=== PATIENT | male | born 1955 | race Hispanic/Latino ===

== ENCOUNTER 2018-04-22 08:40 | Emergency (ER) | payer MEDICAID, OTHER ==
[2018-04-22 08:45] VITALS: TEMP 97
[2018-04-22 08:46] VITALS: BMI 23.7
[2018-04-22] MEDS ORDERED: Multivitamin (MVI) 10 ML, Thiamine 100 MG, Folic Acid 1 MG in Dextrose 5%/0.45% NS 1,00... IV ONE (09:12)
[2018-04-22] MEDS ORDERED: Sodium Chloride 0.9% 1,000 ML IV STA (09:12)
[2018-04-22 10:05] LABS: BASO % 0.7 % (0.0-2.0); EOS # 0.1 K/uL (0.0-0.7); EOS % 1.3 % (0.0-4.0); HEMOGLOBIN 14.2 g/dL (12.0-18.0); LYMPH # 1.2 K/uL (1.0-4.3); LYMPH % 19.8 % (20.0-40.0); MEAN CELL VOLUME 94.7 fl (80.0-94.0); MEAN CORPUSCULAR HEMOGLOBIN 32.4 pg (27.0-31.0); MEAN CORPUSCULAR HGB CONC 34.3 g/dL (33.0-37.0); MONO # 0.5 K/uL (0.0-0.8); MONO % 8.7 % (0.0-10.0); NEUT # 4.1 K/uL (1.8-7.0); NEUT % 69.5 % (50.0-75.0); NRBC % 0.1 % (0.0-0.0); RBC 4.39 Mil/uL (4.40-5.90); RED CELL DISTRIBUTION WIDTH 14.3 % (11.5-14.5); WHITE BLOOD COUNT 5.9 K/uL (4.8-10.8)
[2018-04-22 10:17] LABS: ALB/GLOB RATIO 1.4 (1.0-2.1); ALBUMIN 4.4 g/dL (3.5-5.0); ALT/SGPT 18 U/L (21-72); AST/SGOT 21 U/L (17-59); BLOOD UREA NITROGEN 7 mg/dl (9-20); CALCIUM 8.7 mg/dL (8.4-10.2); GFR NON-AFRICAN AMERICAN > 60
--- NOTE | 2018-04-22 10:25 | ED PDOC ---
Syncope/Near Syncope/Dizziness Time Seen by Provider: 04/22/18 09:00 Chief Complaint (Nursing): Dizziness/Lightheaded Chief Complaint (Provider): Dizziness/Lightheaded History Per: Patient History/Exam Limitations: no limitations Onset/Duration Of Symptoms: Days (x10) Current Symptoms Are (Timing): Still Present Activity At Onset Of Symptoms: Walking Associated Symptoms Preceding Syncopal Episode: Worse With Standing, Vertigo Possible Causative Factor(s): Recent Alcohol, Decreased PO Intake Additional Complaint(s): 62 year old homeless male with a past medical history of diabetes was brought in by EMS presents to the ED complaining of on and off dizziness that worsens when he gets up to walk, onset ten days ago. Patient states he has not been drinking enough water and is instead ingesting alcohol instead. Patient reports of feeling thirsty, headaches, myalgias, and shaking due to hot summer weather, being on the streets all day, not drinking enough water and being under the sun. Patient admits that his last drink was yesterday. Additionally, patient has been having chronic cough and mild on and off chest pain. Patient reports he is not depressed and has not had suicidal ideation or homicidal ideation. Patient reports he had went to a specific program and stopped drinking for a period of time but started to binge drink ten days ago. In addition, patient reports of falling 20 days ago when he hit his head. Patient was seen at a different hospital. Triage reported a history of DVT and patient states he has never taken any medications. Patient states he has not been taking diabetes medications for ten days. Denies abdominal pain, vomiting, and diarrhea. PMD: None Provided Past Medical History Reviewed: Historical Data, Nursing Documentation, Vital Signs Vital Signs: Last Vital Signs Temp 97 F L 04/22/18 08:45 Pulse 102 H 04/22/18 08:45 Resp BP 121/63 04/22/18 08:45 Pulse Ox 98 04/22/18 08:50 - Medical History PMH: Cardia Arrhythmia, Diabetes, HTN - Surgical History Surgical History: No Surg Hx - Family History Family History: States: Unknown Family Hx - Home Medications Home Medications: Ambulatory Orders Medication Instructions Recorded Nicotine 14 mg/24 hr [Nicoderm CQ] 1 patch TD DAILY 04/22/18 Pregabalin [Lyrica] 50 mg PO Q12 04/22/18 Sertraline [Zoloft] 25 mg PO DAILY 04/22/18 metFORMIN [glucOPHAGE] 500 mg PO BID 04/22/18 traZODone [Desyrel] 50 mg PO HS 04/22/18 - Allergies Allergies/Adverse Reactions: Allergies Allergy/AdvReac Type Severity Reaction Status Date / Time gabapentin Allergy Mild RASH Verified 04/22/18 08:49 Review of Systems ROS Statement: Except As Marked, All Systems Reviewed And Found Negative Constitutional: Positive for: Chills, Other (myalgia ) Cardiovascular: Positive for: Chest Pain (mild on and off) Respiratory: Positive for: Cough (chronic) Gastrointestinal: Positive for: Other (decreased water intake ). Negative for: Vomiting, Abdominal Pain, Diarrhea Neurological: Positive for: Headache, Dizziness Psych: Positive for: Other (alcohol intoxication ). Negative for: Depression, Suicidal ideation (or homicidal ideation) Physical Exam - Reviewed Nursing Documentation Reviewed: Yes Vital Signs Reviewed: Yes - Physical Exam Appears: Positive for: No Acute Distress (comfortable but disheveled) Head Exam: Positive for: ATRAUMATIC Skin: Positive for: Normal Color Eye Exam: Positive for: EOMI, PERRL. Negative for: Nystagmus ENT: Positive for: Normal ENT Inspection (dry mucous membranes) Neck: Positive for: Normal, Painless ROM, Supple Cardiovascular/Chest: Positive for: Regular Rate, Rhythm, Tachycardia. Negative for: Murmur Respiratory: Positive for: Normal Breath Sounds. Negative for: Respiratory Distress Gastrointestinal/Abdominal: Positive for: Normal Exam, Soft. Negative for: Tenderness Back: Positive for: Normal Inspection Extremity: Positive for: Normal ROM Neurologic/Psych: Positive for: Alert, Oriented (x3). Negative for: Motor/ Sensory Deficits - Laboratory Results Result Diagrams: 04/22/18 09:57 04/22/18 09:57 - ECG O2 Sat by Pulse Oximetry: 98 (RA) Pulse Ox Interpretation: Normal Medical Decision Making Medical Decision Making: Time: 910 Impression: Dizziness, flu-like symptoms, alcohol abuse Differentials include but not limited to bengin positional vertigo, orthostatic HTN due to dehydration, EtOH intoxication with early withdrawal, dehydration with acute renal failure, electrolyte abnormality associated with alcoholism. Rule Out: Intracranial bleeding (less likely), possible peripheral vertigo. Plan: -- Head CT w/o Contrast -- EKG -- ED Urine Dipstick -- Urine Drug Screen -- CXR Portable -- Antivert 25 mg PO -- [Dextrose 5%/0.45% NS Multivitamin (MVI) 10 ml Thiamine 100 mg Folic Acid 1 mg] IV 125 mls/hr -- Librium 50 mg PO -- Sodum Chloride IV 1000 mls/hr -- Orthostatic BP PRN Time: 0957 Plan: -- Alcohol Serum -- CMP -- Magnesium -- Troponin I -- CBC with differentials Time: [address] RESULTS FINDINGS: HEMORRHAGE: No intracranial hemorrhage. BRAIN: No mass effect or edema. Atrophy. Chronic microvascular ischemic changes. Right basal ganglia lacunar infarction. VENTRICLES: Prominent. No hydrocephalus. CALVARIUM: Unremarkable. PARANASAL SINUSES: Unremarkable as visualized. No significant inflammatory changes. MASTOID AIR CELLS: Unremarkable as visualized. No inflammatory changes. OTHER FINDINGS: None. IMPRESSION: No acute intracranial pathology. Time:1204 CXR RESULTS FINDINGS: LUNGS: No active pulmonary disease. PLEURA: No significant pleural effusion identified, no pneumothorax apparent. CARDIOVASCULAR: Atherosclerotic aortic calcifications. Cardiomediastinal silhouette within normal limits. OSSEOUS STRUCTURES: Degenerative changes. VISUALIZED UPPER ABDOMEN: Normal. OTHER FINDINGS: None. IMPRESSION: No active disease. 1345 Patient is improved. No dizziness. Not orthostatic on repeat test. Ambulated with steady gait without assistance. No signs of alcohol withdrawal after benzos. 1350 Denies depression, SI or HI. Given referral by crisis. No detox beds available. Scribe Attestation: Documented by Natasha Mcgill, acting as a scribe for Dr. Hugo Jason MD. Provider Scribe Attestation: All medical record entries made by the Scribe were at my direction and personally dictated by me. I have reviewed the chart and agree that the record accurately reflects my personal performance of the history, physical exam, medical decision making, and the department course for this patient. I have also personally directed, reviewed, and agree with the discharge instructions and disposition. Disposition - Clinical Impression Clinical Impression: Dizziness, Alcohol abuse - Patient ED Disposition Is Patient to be Admitted: No Doctor Will See Patient In The: Office Counseled Patient/Family Regarding: Studies Performed, Diagnosis - Disposition Referrals: [facility] [Outside] Disposition: Routine/Home Disposition Time: 13:54 Condition: GOOD Additional Instructions: Follow up with your PCP in 2-3 days. Instructions: Alcohol Abuse and Alcoholism (DC), Dizziness, Nonvertigo, (DC)
--- NOTE | 2018-04-22 10:52 | CT ---
PROCEDURE: CT HEAD WITHOUT CONTRAST. HISTORY: dizziness COMPARISON: None available. TECHNIQUE: Axial computed tomography images were obtained through the head/brain without intravenous contrast. Radiation dose: Total exam DLP = 1340 mGy-cm. This CT exam was performed using one or more of the following dose reduction techniques: Automated exposure control, adjustment of the mA and/or kV according to patient size, and/or use of iterative reconstruction technique. FINDINGS: HEMORRHAGE: No intracranial hemorrhage. BRAIN: No mass effect or edema. Atrophy. Chronic microvascular ischemic changes. Right basal ganglia lacunar infarction. VENTRICLES: Prominent. No hydrocephalus. CALVARIUM: Unremarkable. PARANASAL SINUSES: Unremarkable as visualized. No significant inflammatory changes. MASTOID AIR CELLS: Unremarkable as visualized. No inflammatory changes. OTHER FINDINGS: None. IMPRESSION: No acute intracranial pathology.
[2018-04-22] MEDS ORDERED: Potassium Chloride 20 mEq ER Tab PO ONE ×2 (10:53→12:34)
--- NOTE | 2018-04-22 12:05 | RAD ---
HISTORY: chest pain COMPARISON: No prior. FINDINGS: LUNGS: No active pulmonary disease. PLEURA: No significant pleural effusion identified, no pneumothorax apparent. CARDIOVASCULAR: Atherosclerotic aortic calcifications. Cardiomediastinal silhouette within normal limits. OSSEOUS STRUCTURES: Degenerative changes. VISUALIZED UPPER ABDOMEN: Normal. OTHER FINDINGS: None. IMPRESSION: No active disease.
--- NOTE | 2018-04-22 12:38 | CARD ---
APPROVED REPORT EKG Measurement Heart [id number] <Conclusion> Normal sinus rhythm Normal ECG
[2018-04-22 12:44] VITALS: O2SAT 98
[2018-04-22 15:29] VITALS: BP 128/78; PULSE 78; RESP 19
== END 2018-04-22 15:30 | disposition home or self-care (01) ==
LOC: EDBD → H.ER 08:40 → UNMERGE 08:40 → MERGE 08:40 → H.ER 15:30
DX: R42 Dizziness and giddiness (principal); F10.10 Alcohol abuse, uncomplicated; E11.9 Type 2 diabetes mellitus without complications; I10 Essential (primary) hypertension; N17.9 Acute kidney failure, unspecified; Z79.84 Long term (current) use of oral hypoglycemic drugs
CPT/HCPCS: 70450; 71045; 80053; 82948; 83735; 84484; 85025; 93005; 99285; G0480; J2060; J3411; J7030; J7042

== ENCOUNTER 2018-06-09 15:10 | Emergency (ER) | payer MEDICARE, OTHER ==
[2018-06-09 15:28] VITALS: BP 127/79; PULSE 87; RESP 16; O2SAT 97
[2018-06-09 16:35] LABS: BASO # 0.2 K/uL (0.0-0.2); BASO % 1.5 % (0.0-2.0); EOS # 0.8 K/uL (0.0-0.7); EOS % 5.7 % (0.0-4.0); HEMOGLOBIN 13.8 g/dL (12.0-18.0); LYMPH # 3.5 K/uL (1.0-4.3); MEAN CORPUSCULAR HEMOGLOBIN 31.8 pg (27.0-31.0); MEAN CORPUSCULAR HGB CONC 34.6 g/dL (33.0-37.0); MEAN PLATELET VOLUME 7.9 fl (7.2-11.7); MONO # 1.3 K/uL (0.0-0.8); MONO % 9.1 % (0.0-10.0); NEUT # 8.2 K/uL (1.8-7.0); NEUT % 58.7 % (50.0-75.0); RBC 4.33 Mil/uL (4.40-5.90); RED CELL DISTRIBUTION WIDTH 13.9 % (11.5-14.5); WHITE BLOOD COUNT 13.9 K/uL (4.8-10.8)
--- NOTE | 2018-06-09 16:36 | ED PDOC ---
HPI: General Adult Time Seen by Provider: 06/09/18 15:15 Chief Complaint (Nursing): Abnormal Labs Chief Complaint (Provider): abnormal labs History Per: Patient History/Exam Limitations: no limitations Additional Complaint(s): Bradly Caro is a 62 year old male, with a past medical history of diabetes and neuropathy, who was sent by Dr. Betancourt for repeat blood work and x-ray post his recent bronchitis. Patient was supposed to go to outpatient lab/ radiology but instead came here. Patient states she was diagnosed with bronchitis a few weeks ago but currently feels better. Patient's wbc was [address] Betancourt but improved. Patient has no medical complaints at this time. PMD: Tico Betancourt Past Medical History Reviewed: Historical Data, Nursing Documentation, Vital Signs Vital Signs: Last Vital Signs Temp 97.9 F 06/09/18 17:00 Pulse 87 06/09/18 15:26 Resp 16 06/09/18 15:26 BP 127/79 06/09/18 15:26 Pulse Ox 97 06/09/18 18:10 - Medical History PMH: Diabetes, Pancreatitis Other PMH: neuropathy - Surgical History Other surgeries: endarterectomy to left leg - Family History Family History: States: Unknown Family Hx - Social History Current smoker - smoking cessation education provided: Yes (5 cigarettes daily but cut down from previous) Alcohol: Other (alcoholic but goes to AA) Drugs: Denies - Home Medications Home Medications: Ambulatory Orders Medication Instructions Recorded Nicotine 14 mg/24 hr [Nicoderm CQ] 1 patch TD DAILY 04/22/18 Pregabalin [Lyrica] 50 mg PO Q12 04/22/18 Sertraline [Zoloft] 25 mg PO DAILY 04/22/18 metFORMIN [glucOPHAGE] 500 mg PO BID 04/22/18 traZODone [Desyrel] 50 mg PO HS 04/22/18 Azithromycin [Zithromax] 250 mg PO DAILY #6 tab 05/30/18 Pregabalin [Lyrica] 50 mg PO BID #30 cap 05/30/18 metFORMIN [glucOPHAGE] 500 mg PO BID #30 tab 05/30/18 - Allergies Allergies/Adverse Reactions: Allergies Allergy/AdvReac Type Severity Reaction Status Date / Time gabapentin Allergy RASH Verified 06/09/18 15:28 Review of Systems ROS Statement: Except As Marked, All Systems Reviewed And Found Negative Physical Exam - Reviewed Nursing Documentation Reviewed: Yes Vital Signs Reviewed: Yes - Physical Exam Appears: Positive for: No Acute Distress Head Exam: Positive for: ATRAUMATIC, NORMAL INSPECTION, NORMOCEPHALIC Skin: Positive for: Normal Color, Warm, Dry Eye Exam: Positive for: Normal appearance, EOMI, PERRL ENT: Positive for: Normal ENT Inspection Neck: Positive for: Painless ROM Cardiovascular/Chest: Positive for: Regular Rate, Rhythm. Negative for: Murmur Respiratory: Positive for: Normal Breath Sounds. Negative for: Respiratory Distress Gastrointestinal/Abdominal: Positive for: Normal Exam, Soft. Negative for: Tenderness Back: Positive for: Normal Inspection Extremity: Positive for: Normal ROM (upper and lower extremities). Negative for : Deformity, Swelling Neurologic/Psych: Positive for: Alert, Oriented. Negative for: Motor/Sensory Deficits - Laboratory Results Result Diagrams: 06/09/18 16:11 06/09/18 16:11 - ECG O2 Sat by Pulse Oximetry: 97 (RA) Pulse Ox Interpretation: Normal Medical Decision Making Medical Decision Making: Time: 15:31 Initial Impression: abnormal labs Initial Plan: --CMP --CBC w/ differential --Chest two views (PA/LAT) [RAD] --Reevaluation -Spoke with Dr. Betancourt who wants to make sure he has no leukocytosis or PNA. Assuming wbc is going down and x-ray is negative. Patient can follow up with him tomorrow. 1700 --WBC decreased. Dr. Betancourt made aware. Patient is advised to follow up with PMD tomorrow. There is agreement to discharge plan. Return if symptoms persist or worsen. cxr see full report. no new pneumonia. ----- Scribe Attestation: Documented by Marcos Chen, acting as a scribe for Tangela Rodriguez MD. Provider Scribe Attestation: All medical record entries made by the Scribe were at my direction and personally dictated by me. I have reviewed the chart and agree that the record accurately reflects my personal performance of the history, physical exam, medical decision making, and the department course for this patient. I have also personally directed, reviewed, and agree with the discharge instructions and disposition. Disposition - Clinical Impression Clinical Impression: Follow up - Patient ED Disposition Is Patient to be Admitted: No Counseled Patient/Family Regarding: Studies Performed, Diagnosis, Need For Followup - Disposition Disposition: Routine/Home Disposition Time: 17:00 Condition: IMPROVED Additional Instructions: follow up with Dr Betancourt tomorrow for reevaluation return to the ED with any worsening or concerning symptoms Forms: [employer] (Uzbek)
[2018-06-09 16:46] LABS: ALB/GLOB RATIO 1.3 (1.0-2.1); ALBUMIN 4.4 g/dL (3.5-5.0); ALT/SGPT 16 U/L (21-72); AST/SGOT 15 U/L (17-59); BLOOD UREA NITROGEN 18 mg/dl (9-20); CALCIUM 9.4 mg/dL (8.4-10.2); GFR AFRICAN-AMERICAN > 60; GFR NON-AFRICAN AMERICAN 56
--- NOTE | 2018-06-09 16:52 | RAD ---
Date of service: 06/09/2018 HISTORY: post bronchitis COMPARISON: 05/30/2018 TECHNIQUE: Chest PA and lateral FINDINGS: LUNGS: There is vague asymmetrical opacity over the left lung base this could represent summation anterior posterior ribs and bronchovascular markings. It is slightly more asymmetric. Given history of prior bronchitis -some residual inflammatory changes here 1 consideration. A more sensitive evaluation would be with noncontrast CT chest imaging. Tiny granulomas are also noted. Some of these nodular opacities also project over left upper lung zone. As mentioned noncontrast CT chest is preferred for further evaluation. PLEURA: No significant pleural effusion identified. No pneumothorax apparent. CARDIOVASCULAR: Normal. OSSEOUS STRUCTURES: No significant abnormalities. VISUALIZED UPPER ABDOMEN: Normal. OTHER FINDINGS: None. IMPRESSION: No interval dense consolidation. Nonspecific faint opacities at the left lung base are probably summation of soft tissues and possibly residual inflammatory changes. A more sensitive evaluation for excluding any other with tears pathology would be with noncontrast CT chest imaging. Granulomatous the changes suggested.
[2018-06-09 17:22] VITALS: TEMP 97.9
== END 2018-06-09 17:00 | disposition home or self-care (01) ==
LOC: H.ER 15:10
DX: J40 Bronchitis, not specified as acute or chronic (principal); R79.9 Abnormal finding of blood chemistry, unspecified; E11.40 Type 2 diabetes mellitus with diabetic neuropathy, unspecified; Z79.84 Long term (current) use of oral hypoglycemic drugs

== ENCOUNTER 2018-07-04 20:05 | Emergency (ER) | payer OTHER, MEDICARE ==
--- NOTE | 2018-07-04 21:08 | ED PDOC ---
HPI: Psych/Substance Abuse Time Seen by Provider: 07/04/18 20:15 Chief Complaint (Nursing): Alcohol Ingestion Chief Complaint (Provider): Alcohol Ingestion ED Caveat: Intoxicated History Per: Patient, EMS History/Exam Limitations: intoxication Onset/Duration Of Symptoms: Mins (prior to arrival) Current Symptoms Are (Timing): Still Present Additional Complaint(s): 62 year old male presents to the ED via EMS for alcohol intoxication. Patient was found lying on the ground, and admits to drinking alcohol. He offers no other complaints at this time. Of note, due to patient's intoxication, he is a poor historian, thus limiting HPI, ROS, and PMHX. Some PMHX was pulled from previous charting. PMD: none provided Past Medical History Reviewed: Historical Data, Nursing Documentation, Vital Signs Vital Signs: Last Vital Signs Temp 98.6 F 07/04/18 20:06 Pulse 99 H 07/04/18 20:06 Resp 16 07/04/18 20:06 BP 124/70 07/04/18 20:06 Pulse Ox 90 L 07/04/18 20:06 - Medical History PMH: Diabetes, Pancreatitis - Family History Family History: States: Unknown Family Hx - Social History Alcohol: Social - Immunization History Hx Tetanus Toxoid Vaccination: Yes Hx Influenza Vaccination: No Hx Pneumococcal Vaccination: No - Home Medications Home Medications: Ambulatory Orders Medication Instructions Recorded Nicotine 14 mg/24 hr [Nicoderm CQ] 1 patch TD DAILY 04/22/18 Pregabalin [Lyrica] 50 mg PO Q12 04/22/18 Sertraline [Zoloft] 25 mg PO DAILY 04/22/18 metFORMIN [glucOPHAGE] 500 mg PO BID 04/22/18 traZODone [Desyrel] 50 mg PO HS 04/22/18 Azithromycin [Zithromax] 250 mg PO DAILY #6 tab 05/30/18 Pregabalin [Lyrica] 50 mg PO BID #30 cap 05/30/18 metFORMIN [glucOPHAGE] 500 mg PO BID #30 tab 05/30/18 - Allergies Allergies/Adverse Reactions: Allergies Allergy/AdvReac Type Severity Reaction Status Date / Time gabapentin Allergy RASH Verified 07/04/18 20:08 Review of Systems Review Of Systems: ROS cannot be obtained secondary to pt's inabilty to answer questions. Physical Exam - Reviewed Nursing Documentation Reviewed: Yes Vital Signs Reviewed: Yes - Physical Exam Appears: Positive for: No Acute Distress (but looks disheveled) Head Exam: Positive for: ATRAUMATIC, NORMAL INSPECTION, NORMOCEPHALIC Skin: Positive for: Normal Color, Warm, Dry Eye Exam: Positive for: Normal appearance ENT: Positive for: Normal ENT Inspection Neck: Positive for: Normal, Painless ROM, Supple Cardiovascular/Chest: Positive for: Regular Rate, Rhythm Respiratory: Positive for: Normal Breath Sounds. Negative for: Accessory Muscle Use, Respiratory Distress Gastrointestinal/Abdominal: Positive for: Normal Exam, Soft, Other (large, old abdominal scar, no tenderness or ecchymosis). Negative for: Tenderness Back: Positive for: Normal Inspection (no ecchymosis). Negative for: L CVA Tenderness, R CVA Tenderness, Vertebral Tenderness Extremity: Positive for: Normal ROM Neurologic/Psych: Positive for: Alert, Oriented (x1, to person), Other (slurred speech, alcohol on breath) - Laboratory Results Result Diagrams: 07/04/18 21:59 07/04/18 21:59 - ECG O2 Sat by Pulse Oximetry: 96 (RA) Pulse Ox Interpretation: Normal Medical Decision Making Medical Decision Making: Time: 2100 Initial Impression: alcohol intoxication Initial Plan: --Alcohol serum --CMP --Drug screen --CBC with differential --Accucheck --Urinalysis 2350 On re-evaluation, pt. sleeping comfortably. Arousable to verbal stimuli. Offers no complaints. Scribe Attestation: Documented by Abbey Barton, acting as a scribe for Rudolph Burch PA-C. Provider Scribe Attestation: All medical record entries made by the Scribe were at my direction and personally dictated by me. I have reviewed the chart and agree that the record accurately reflects my personal performance of the history, physical exam, medical decision making, and the department course for this patient. I have also personally directed, reviewed, and agree with the discharge instructions and disposition. Disposition - Clinical Impression Clinical Impression: Alcohol abuse with intoxication - Patient ED Disposition Is Patient to be Admitted: Transfer of Care (Signed out to Suzi RIBEIRO pending sobriety) - Disposition Disposition Time: 00:00 Condition: STABLE Forms: [employer] (Afghan)
[2018-07-04 22:05] LABS: BASO # 0.1 K/uL (0.0-0.2); BASO % 0.6 % (0.0-2.0); EOS % 0.2 % (0.0-4.0); LYMPH # 3.2 K/uL (1.0-4.3); LYMPH % 18.7 % (20.0-40.0); MEAN CELL VOLUME 91.3 fl (80.0-94.0); MEAN CORPUSCULAR HGB CONC 33.9 g/dL (33.0-37.0); MONO # 1.3 K/uL (0.0-0.8); MONO % 7.7 % (0.0-10.0); NEUT # 12.6 K/uL (1.8-7.0); NEUT % 72.8 % (50.0-75.0); RBC 4.52 Mil/uL (4.40-5.90); RED CELL DISTRIBUTION WIDTH 13.7 % (11.5-14.5); WHITE BLOOD COUNT 17.3 K/uL (4.8-10.8)
[2018-07-04 22:36] LABS: ALB/GLOB RATIO 1.4 (1.0-2.1); ALBUMIN 4.4 g/dL (3.5-5.0); ALT/SGPT 18 U/L (21-72); AST/SGOT 22 U/L (17-59); BLOOD UREA NITROGEN 6 mg/dl (9-20); CALCIUM 9.2 mg/dL (8.4-10.2); GFR NON-AFRICAN AMERICAN > 60
[2018-07-05 05:22] LABS: SQUAMOUS EPITHIAL < 1 /hpf (0-5); URINE BACTERIA RARE (<OCC); URINE BILIRUBIN NEGATIVE (NEGATIVE); URINE BLOOD SMALL (NEGATIVE); URINE CLARITY SLIGHTY-CLOUDY (Clear); URINE COLOR YELLOW (YELLOW); URINE GLUCOSE (UA) NEG (Normal); URINE LEUKOCYTE ESTERASE NEG Leu/uL (Negative); URINE PROTEIN 30 mg/dL (NEGATIVE); URINE UROBILINOGEN 0.2-1.0 mg/dL (0.2-1.0)
--- NOTE | 2018-07-05 05:33 | ED PDOC ---
- Laboratory Results Result Diagrams: 07/04/18 21:59 07/04/18 21:59 - ECG O2 Sat by Pulse Oximetry: 96 (RA) - Progress ED Course And Treament: Case endorsed to real estate underwriter from Marcin RIBEIRO pending sobriety 1:30 Patient sleeping; no distress 3:00 Patient sleeping; no distress 4:30 Patient sleeping; no distress 6:00 Patient awake, alert, oriented x3. Ambulating steady gait Vitals stable Patient stable for discharge Disposition - Clinical Impression Clinical Impression: Alcohol abuse with intoxication - POA Present On Arrival: None - Disposition Referrals: [facility] [Outside] Disposition: Routine/Home Disposition Time: 06:00 Condition: STABLE Instructions: Alcohol Abuse and Alcoholism (DC)
[2018-07-05 05:43] LABS: BARBITURATES, UR NEGATIVE (NEGATIVE); BENZODIAZEPINES, UR NEGATIVE (NEGATIVE); OPIATES, UR NEGATIVE (NEGATIVE); PHENCYCLIDINE, UR NEGATIVE (NEGATIVE)
[2018-07-05 06:30] VITALS: BP 124/72; PULSE 91; RESP 18; TEMP 98
[2018-07-06 05:42] VITALS: O2SAT 96
== END 2018-07-05 05:55 | disposition home or self-care (01) ==
LOC: H.ER 20:05
DX: F10.129 Alcohol abuse with intoxication, unspecified (principal); E11.9 Type 2 diabetes mellitus without complications; K85.90 Acute pancreatitis without necrosis or infection, unspecified; Z79.84 Long term (current) use of oral hypoglycemic drugs

== ENCOUNTER 2018-07-11 22:21 | Emergency (ER) | payer MEDICARE, OTHER ==
--- NOTE | 2018-07-11 23:56 | ED PDOC ---
HPI: Psych/Substance Abuse Time Seen by Provider: 07/11/18 22:36 Chief Complaint (Nursing): Alcohol Ingestion Chief Complaint (Provider): Alcohol Ingestion ED Caveat: Intoxicated History Per: Patient, EMS History/Exam Limitations: intoxication Onset/Duration Of Symptoms: Mins Current Symptoms Are (Timing): Still Present Modifying Factor(s): Alcohol Additional Complaint(s): 62 year old male presents to the ED for alcohol intoxication. Patient was found sleeping on the ground with poor hygiene. No trauma reports. History is limited due to intoxication. PMD: none Past Medical History Reviewed: Historical Data, Nursing Documentation, Vital Signs Vital Signs: Last Vital Signs Temp 97.1 F L 07/11/18 22:25 Pulse 89 07/11/18 22:25 Resp 16 07/11/18 22:25 BP 126/69 07/11/18 22:25 Pulse Ox 98 07/11/18 22:25 - Medical History PMH: Diabetes, Pancreatitis - Surgical History Surgical History: No Surg Hx - Family History Family History: States: Unknown Family Hx - Immunization History Hx Tetanus Toxoid Vaccination: Yes Hx Influenza Vaccination: No Hx Pneumococcal Vaccination: No - Home Medications Home Medications: Ambulatory Orders Medication Instructions Recorded Nicotine 14 mg/24 hr [Nicoderm CQ] 1 patch TD DAILY 04/22/18 Pregabalin [Lyrica] 50 mg PO Q12 04/22/18 Sertraline [Zoloft] 25 mg PO DAILY 04/22/18 metFORMIN [glucOPHAGE] 500 mg PO BID 04/22/18 traZODone [Desyrel] 50 mg PO HS 04/22/18 Pregabalin [Lyrica] 50 mg PO BID #30 cap 05/30/18 metFORMIN [glucOPHAGE] 500 mg PO BID #30 tab 05/30/18 Azithromycin [Zithromax] 250 mg PO DAILY #6 tab 07/12/18 Azithromycin [Zithromax] 250 mg PO DAILY #6 tab 07/12/18 Tobramycin 0.3% [Tobramycin 5 Ml] 1 drop OP TID #1 bottle 07/12/18 - Allergies Allergies/Adverse Reactions: Allergies Allergy/AdvReac Type Severity Reaction Status Date / Time gabapentin Allergy RASH Verified 07/12/18 17:18 Review of Systems Review Of Systems: ROS cannot be obtained secondary to pt's inabilty to answer questions. (intoxicated) Constitutional: Negative for: Other (Pain) Physical Exam - Reviewed Nursing Documentation Reviewed: Yes Vital Signs Reviewed: Yes - Physical Exam Appears: Positive for: No Acute Distress (arousable to physical stimuli; intoxicated with poor hygiene with wet pillows; chronic appearing) Head Exam: Positive for: ATRAUMATIC, NORMOCEPHALIC Skin: Negative for: Normal Color (erythroderma to upper greater and lower extremities) Eye Exam: Positive for: Normal appearance Neck: Positive for: Normal, Painless ROM Cardiovascular/Chest: Positive for: Regular Rate, Rhythm. Negative for: Murmur Respiratory: Positive for: Normal Breath Sounds. Negative for: Wheezing, Respiratory Distress Extremity: Positive for: Normal ROM (moves all extremities) Neurologic/Psych: Positive for: Mood/Affect (blunted by alcohol) - ECG O2 Sat by Pulse Oximetry: 98 (RA) Pulse Ox Interpretation: Normal Medical Decision Making Medical Decision Making: Initial Impression: Intoxication Initial Plan: Alcohol serum Glucose Recommend DECON, warm shower, and glucose and alcohol check. 00:30 after decon in shower patient became more arousable, +productive cough, obtain CXR and labs from last night reviewed revealing WBC 17. endorse Dr Jason Scribe Attestation: Documented by Mikhail Earl acting as a scribe for Pastor Spear III, DO. Provider Scribe Attestation: All medical record entries made by the Scribe were at my direction and personally dictated by me. I have reviewed the chart and agree that the record accurately reflects my personal performance of the history, physical exam, medical decision making, and the department course for this patient. I have also personally directed, reviewed, and agree with the discharge instructions and disposition. Disposition - Clinical Impression Clinical Impression: Alcohol abuse with intoxication, Bronchitis - Patient ED Disposition Is Patient to be Admitted: Transfer of Care Counseled Patient/Family Regarding: Studies Performed, Diagnosis - Disposition Referrals: [facility] [Outside] Disposition: Transfer of Care Disposition Time: 00:37 Condition: GOOD Additional Instructions: HA CASTRO, thank you for letting us take care of you today. Your provider was Hugo Jason MD and you were treated for ETOH. The emergency medical care you received today was directed at your acute symptoms. If you were prescribed any medication, please fill it and take as directed. It may take several days for your symptoms to resolve. Return to the Emergency Department if your symptoms worsen, do not improve, or if you have any other problems. Please contact your doctor or call one of the physicians/clinics you have been referred to that are listed on the Patient Visit Information form that is included in your discharge packet. Bring any paperwork you were given at discharge with you along with any medications you are taking to your follow up visit. Our treatment cannot replace ongoing medical care by a primary care provider outside of the emergency department. [facility] of your care today. If you had an X-Ray or CT scan: A Radiologist will review the ED reading if any change in treatment is needed we will contact you. If you had a blood, urine, or wound culture: It will take several days for the results, if any change in treatment is needed we will contact you. If you had an STI test: It will take 48 hours for the results. Please call after 1 week if you have not heard back. Prescriptions: Azithromycin [Zithromax] 250 mg PO DAILY #6 tab Instructions: Acute Bronchitis, Alcohol Abuse and Alcoholism (DC)
--- NOTE | 2018-07-12 00:47 | ED PDOC ---
- ECG O2 Sat by Pulse Oximetry: 98 (RA) Medical Decision Making Medical Decision Makin:00 Patient endorsed to this provider from Dr. Spear. Pending clinical sobriety. Scribe Attestation: Documented by Mikhail Earl acting as a scribe for Hugo Jason MD. Provider Scribe Attestation: All medical record entries made by the Scribe were at my direction and personally dictated by me. I have reviewed the chart and agree that the record accurately reflects my personal performance of the history, physical exam, medical decision making, and the department course for this patient. I have also personally directed, reviewed, and agree with the discharge instructions and disposition. Disposition Doctor Will See Patient In The: Office Counseled Patient/Family Regarding: Studies Performed, Need For Followup - Clinical Impression Clinical Impression: Alcohol abuse with intoxication, Bronchitis - POA Present On Arrival: None - Disposition Referrals: [facility] [Outside] Disposition: Routine/Home Disposition Time: 06:00 Condition: GOOD Additional Instructions: HA CASTRO, thank you for letting us take care of you today. Your provider was Hugo Jason MD and you were treated for ETOH. The emergency medical care you received today was directed at your acute symptoms. If you were prescribed any medication, please fill it and take as directed. It may take several days for your symptoms to resolve. Return to the Emergency Department if your symptoms worsen, do not improve, or if you have any other problems. Please contact your doctor or call one of the physicians/clinics you have been referred to that are listed on the Patient Visit Information form that is included in your discharge packet. Bring any paperwork you were given at discharge with you along with any medications you are taking to your follow up visit. Our treatment cannot replace ongoing medical care by a primary care provider outside of the emergency department. Thank you for allowing the [facility] team to be part of your care today. If you had an X-Ray or CT scan: A Radiologist will review the ED reading if any change in treatment is needed we will contact you. If you had a blood, urine, or wound culture: It will take several days for the results, if any change in treatment is needed we will contact you. If you had an STI test: It will take 48 hours for the results. Please call after 1 week if you have not heard back. Prescriptions: Azithromycin [Zithromax] 250 mg PO DAILY #6 tab Instructions: Acute Bronchitis, Alcohol Abuse and Alcoholism (DC)
[2018-07-12 05:50] VITALS: BP 128/79; PULSE 94; RESP 18; TEMP 98.5
--- NOTE | 2018-07-12 08:05 | RAD ---
Date of service: 07/12/2018 HISTORY: SOB COMPARISON: Chest radiographs 06/09/2018. FINDINGS: LUNGS: No active pulmonary disease. Skin fold noted at the left apex. Trace linear atelectasis noted at the left base laterally. PLEURA: No significant pleural effusion identified, no pneumothorax apparent. CARDIOVASCULAR: Normal. OSSEOUS STRUCTURES: No significant abnormalities. VISUALIZED UPPER ABDOMEN: Normal. OTHER FINDINGS: None. IMPRESSION: No interval significant acute cardiopulmonary disease appreciated. Note is made of diminished inspiratory volume.
[2018-07-14 07:07] VITALS: O2SAT 98
== END 2018-07-12 06:14 | disposition home or self-care (01) ==
LOC: H.ER 22:21
DX: F10.129 Alcohol abuse with intoxication, unspecified (principal); J40 Bronchitis, not specified as acute or chronic; E11.9 Type 2 diabetes mellitus without complications; Z79.84 Long term (current) use of oral hypoglycemic drugs; Y90.8 Blood alcohol level of 240 mg/100 ml or more

== ENCOUNTER 2018-07-12 06:55 | Emergency (ER) | payer MEDICARE, OTHER ==
--- NOTE | 2018-07-12 07:56 | ED PDOC ---
HPI: CCC, URI, Sore Throat Time Seen by Provider: 07/12/18 07:08 History Per: Patient Onset/Duration Of Symptoms: Days (7) Current Symptoms Are (Timing): Still Present Associated Symptoms: denies: Fever Severity: Mild Additional Complaint(s): Cough productive green sputum x 1 week. Denies fever. denies chest pain or SOB. Past Medical History Vital Signs: Last Vital Signs Temp 97 F L 07/12/18 07:17 Pulse 106 H 07/12/18 07:17 Resp 22 07/12/18 07:17 BP 154/81 H 07/12/18 07:17 Pulse Ox 99 07/12/18 07:17 - Medical History PMH: Diabetes, Pancreatitis - Family History Family History: States: Unknown Family Hx - Immunization History Hx Tetanus Toxoid Vaccination: Yes Hx Influenza Vaccination: No Hx Pneumococcal Vaccination: No - Home Medications Home Medications: Ambulatory Orders Medication Instructions Recorded Nicotine 14 mg/24 hr [Nicoderm CQ] 1 patch TD DAILY 04/22/18 Pregabalin [Lyrica] 50 mg PO Q12 04/22/18 Sertraline [Zoloft] 25 mg PO DAILY 04/22/18 metFORMIN [glucOPHAGE] 500 mg PO BID 04/22/18 traZODone [Desyrel] 50 mg PO HS 04/22/18 Pregabalin [Lyrica] 50 mg PO BID #30 cap 05/30/18 metFORMIN [glucOPHAGE] 500 mg PO BID #30 tab 05/30/18 Azithromycin [Zithromax] 250 mg PO DAILY #6 tab 07/12/18 Azithromycin [Zithromax] 250 mg PO DAILY #6 tab 07/12/18 Tobramycin 0.3% [Tobramycin 5 Ml] 1 drop OP TID #1 bottle 07/12/18 - Allergies Allergies/Adverse Reactions: Allergies Allergy/AdvReac Type Severity Reaction Status Date / Time gabapentin Allergy RASH Verified 07/11/18 22:25 Review of Systems ROS Statement: Except As Marked, All Systems Reviewed And Found Negative Constitutional: Negative for: Fever Cardiovascular: Negative for: Chest Pain Respiratory: Positive for: Cough. Negative for: Shortness of Breath Physical Exam - Reviewed Nursing Documentation Reviewed: Yes Vital Signs Reviewed: Yes - Physical Exam Appears: Positive for: Non-toxic, No Acute Distress Head Exam: Positive for: ATRAUMATIC, NORMAL INSPECTION, NORMOCEPHALIC Skin: Positive for: Normal Color, Warm, DRY Eye Exam: Positive for: EOMI, PERRL, Conjunctival injection, Other (Yellow discharge left eye) ENT: Positive for: Normal ENT Inspection Neck: Positive for: Normal, Painless ROM Cardiovascular/Chest: Positive for: Regular Rate, Rhythm Respiratory: Positive for: Rhonchi. Negative for: Wheezing, Respiratory Distress Gastrointestinal/Abdominal: Positive for: Normal Exam, Soft Back: Positive for: Normal Inspection Extremity: Positive for: Normal ROM Neurologic/Psych: Positive for: Alert, Oriented - ECG O2 Sat by Pulse Oximetry: 99 Disposition - Clinical Impression Clinical Impression: Bronchitis, Conjunctivitis - Patient ED Disposition Is Patient to be Admitted: No Counseled Patient/Family Regarding: Diagnosis, Need For Followup, Rx Given - Disposition Referrals: [facility] [Outside] Disposition: Routine/Home Disposition Time: 07:56 Condition: FAIR Prescriptions: Azithromycin [Zithromax] 250 mg PO DAILY #6 tab Tobramycin 0.3% [Tobramycin 5 Ml] 1 drop OP TID #1 bottle Instructions: Acute Bronchitis, Conjunctivitis ([place])
[2018-07-12 10:07] VITALS: BP 132/78; PULSE 92; RESP 18; TEMP 97.4; O2SAT 97
== END 2018-07-12 09:40 | disposition home or self-care (01) ==
LOC: H.ER 06:55
DX: J40 Bronchitis, not specified as acute or chronic (principal); H10.9 Unspecified conjunctivitis; E11.9 Type 2 diabetes mellitus without complications; Z79.84 Long term (current) use of oral hypoglycemic drugs

== ENCOUNTER 2018-07-12 16:26 | Inpatient (IN) | payer MEDICARE ==
[2018-07-12 17:20] VITALS: O2SAT 98
--- NOTE | 2018-07-12 17:21 | ED PDOC ---
HPI: Psych/Substance Abuse Time Seen by Provider: 07/12/18 17:19 Chief Complaint (Provider): etoh History Per: Patient Additional Complaint(s): 62-year-old non-domiciled male presents for crisis evaluation. Patient states he is feeling suicidal. He states he thought of a plan earlier today to throw himself in front of a train but he did not do so. He has a history of alcohol abuse but has not drank today. He denies any drug abuse. Patient states he defecated on himself just prior to arrival. PMD: none Past Medical History Reviewed: Historical Data, Nursing Documentation, Vital Signs Vital Signs: Last Vital Signs Temp 99.2 F 07/12/18 17:18 Pulse 111 H 07/12/18 17:18 Resp 20 07/12/18 17:18 BP 153/88 H 07/12/18 17:18 Pulse Ox 98 07/12/18 17:18 - Medical History PMH: Diabetes - Surgical History Other surgeries: removal of mass from abdomen, left femur surgery - Family History Family History: States: No Known Family Hx - Living Arrangements Living Arrangements: Other (non-domiciled) - Social History Current smoker - smoking cessation education provided: Yes Alcohol: > 2 Drinks/Day Drugs: Denies - Home Medications Home Medications: Ambulatory Orders Medication Instructions Recorded Nicotine 14 mg/24 hr [Nicoderm CQ] 1 patch TD DAILY 04/22/18 Pregabalin [Lyrica] 50 mg PO Q12 04/22/18 Sertraline [Zoloft] 25 mg PO DAILY 04/22/18 metFORMIN [glucOPHAGE] 500 mg PO BID 04/22/18 traZODone [Desyrel] 50 mg PO HS 04/22/18 Pregabalin [Lyrica] 50 mg PO BID #30 cap 05/30/18 metFORMIN [glucOPHAGE] 500 mg PO BID #30 tab 05/30/18 Azithromycin [Zithromax] 250 mg PO DAILY #6 tab 07/12/18 Azithromycin [Zithromax] 250 mg PO DAILY #6 tab 07/12/18 Tobramycin 0.3% [Tobramycin 5 Ml] 1 drop OP TID #1 bottle 07/12/18 - Allergies Allergies/Adverse Reactions: Allergies Allergy/AdvReac Type Severity Reaction Status Date / Time gabapentin Allergy RASH Verified 07/12/18 17:18 Review of Systems ROS Statement: Except As Marked, All Systems Reviewed And Found Negative Constitutional: Negative for: Fever Cardiovascular: Negative for: Chest Pain Respiratory: Negative for: Cough Gastrointestinal: Negative for: Nausea, Vomiting Psych: Positive for: Suicidal ideation Physical Exam - Reviewed Nursing Documentation Reviewed: Yes Vital Signs Reviewed: Yes - Physical Exam Appears: Positive for: Non-toxic, No Acute Distress. Negative for: Well ( umkempt) Skin: Positive for: Normal Color. Negative for: Rash Eye Exam: Positive for: Normal appearance Cardiovascular/Chest: Positive for: Regular Rate, Rhythm Respiratory: Positive for: Normal Breath Sounds Extremity: Positive for: Normal ROM Neurologic/Psych: Positive for: Alert, Oriented - Laboratory Results Result Diagrams: 07/12/18 18:39 07/12/18 18:39 - ECG Interpretation Of ECG: NSR 92 bpm, no acute changes, reviewed by PA and ED attending O2 Sat by Pulse Oximetry: 98 Pulse Ox Interpretation: Normal - Other Rad CXR X-Ray: Interpreted by Me, Viewed By Me X-Ray Interpretation: no acute infiltrate Medical Decision Making Medical Decision Makin62 year old male with suicidal ideation Plan: Decon shower 1:1 Crisis eval CBC CMP BAL UDS UA CXR EKG IVF As per crisis counselor and 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 Patient agrees and signed himself in. Patient is medically and psychiatrically stable for incarceration. Disposition - Clinical Impression Clinical Impression: Depression - Patient ED Disposition Is Patient to be Admitted: Yes - Disposition Disposition Time: 19:20 Condition: FAIR - Pt Status Changed To: Hospital Disposition Of: Inpatient - Admit Certification Admit to Inpatient:: After my assessment, the patient will require hospitalization for at least two midnights. This is because of the severity of symptoms shown, intensity of services needed, and/or the medical risk in this patient being treated as an outpatient. - POA Present On Arrival: None Results - Lab Results Lab Results: 07/12/18 07/12/18 07/12/18 20:20 20:20 18:39 WBC RBC Hgb Hct MCV MCH MCHC RDW Plt Count MPV Neut % (Auto) Lymph % (Auto) [place] % (Auto) Eos % (Auto) Baso % (Auto) Neut # (Auto) Lymph # (Auto) Baldwin # (Auto) Eos # (Auto) Baso # (Auto) Sodium 135 Potassium 3.8 Chloride 96 L Carbon Dioxide 30 Anion Gap 13 BUN 9 Creatinine 0.7 L Est GFR ( Amer) > 60 Est GFR (Non-Af Amer) > 60 Random Glucose 247 H Calcium 9.3 Total Bilirubin 1.3 AST 147 H D ALT 43 Alkaline Phosphatase 93 Total Protein 7.2 Albumin 4.3 Globulin 2.9 Albumin/Globulin Ratio 1.5 Urine Color Yellow Urine Clarity Cloudy Urine pH 5.0 Ur Specific [place] 1.023 Urine Protein 100 Urine Glucose (UA) >=500 Urine Ketones 20 Urine Blood Moderate Urine Nitrate Negative Urine Bilirubin Negative Urine Urobilinogen 0.2-1.0 Ur Leukocyte Esterase Neg Urine RBC (Auto) 15 H Urine Microscopic WBC 5 Ur Squamous Epith Cells < 1 Urine Bacteria Rare Urine Sperm (Auto) Mod H Urine Opiates Screen Negative Urine Methadone Screen Negative Ur Barbiturates Screen Negative Ur Phencyclidine Scrn Negative Ur Amphetamines Screen Negative U Benzodiazepines Scrn Negative U Oth Cocaine Metabols Negative U Cannabinoids Screen Negative Alcohol, Quantitative < 10 07/12/18 18:39 WBC 10.4 RBC 3.97 L Hgb 12.4 Hct 36.2 MCV 91.2 MCH 31.2 H MCHC 34.2 RDW 13.9 Plt Count 133 MPV 8.0 Neut % (Auto) 72.6 Lymph % (Auto) 11.7 L Baldwin % (Auto) 15.2 H Eos % (Auto) 0.0 Baso % (Auto) 0.5 Neut # (Auto) 7.6 H Lymph # (Auto) 1.2 Baldwin # (Auto) 1.6 H Eos # (Auto) 0.0 Baso # (Auto) 0.0 Sodium Potassium Chloride Carbon Dioxide Anion Gap BUN Creatinine Est GFR ( Amer) Est GFR (Non-Af Amer) Random Glucose Calcium Total Bilirubin AST ALT Alkaline Phosphatase Total Protein Albumin Globulin Albumin/Globulin Ratio Urine Color Urine Clarity Urine pH Ur Specific [place] Urine Protein Urine Glucose (UA) Urine Ketones Urine Blood Urine Nitrate Urine Bilirubin Urine Urobilinogen Ur Leukocyte Esterase Urine RBC (Auto) Urine Microscopic WBC Ur Squamous Epith Cells Urine Bacteria Urine Sperm (Auto) Urine Opiates Screen Urine Methadone Screen Ur Barbiturates Screen Ur Phencyclidine Scrn Ur Amphetamines Screen U Benzodiazepines Scrn U Oth Cocaine Metabols U Cannabinoids Screen Alcohol, Quantitative
[2018-07-12 18:43] LABS: BASO % 0.5 % (0.0-2.0); HEMOGLOBIN 12.4 g/dL (12.0-18.0); LYMPH # 1.2 K/uL (1.0-4.3); LYMPH % 11.7 % (20.0-40.0); MEAN CELL VOLUME 91.2 fl (80.0-94.0); MEAN CORPUSCULAR HEMOGLOBIN 31.2 pg (27.0-31.0); MEAN CORPUSCULAR HGB CONC 34.2 g/dL (33.0-37.0); MONO # 1.6 K/uL (0.0-0.8); MONO % 15.2 % (0.0-10.0); NEUT # 7.6 K/uL (1.8-7.0); NEUT % 72.6 % (50.0-75.0); RBC 3.97 Mil/uL (4.40-5.90); RED CELL DISTRIBUTION WIDTH 13.9 % (11.5-14.5); WHITE BLOOD COUNT 10.4 K/uL (4.8-10.8)
[2018-07-12 19:00] LABS: ALB/GLOB RATIO 1.5 (1.0-2.1); ALBUMIN 4.3 g/dL (3.5-5.0); ALT/SGPT 43 U/L (21-72); AST/SGOT 147 U/L (17-59); BLOOD UREA NITROGEN 9 mg/dl (9-20); CALCIUM 9.3 mg/dL (8.4-10.2); GFR NON-AFRICAN AMERICAN > 60
[2018-07-12] MEDS ORDERED: Sodium Chloride 0.9% 1,000 ML IV STA (19:15)
[2018-07-12 20:45] LABS: SPERM URINE MOD /hpf; SQUAMOUS EPITHIAL < 1 /hpf (0-5); URINE BACTERIA RARE (<OCC); URINE BILIRUBIN NEGATIVE (NEGATIVE); URINE BLOOD MODERATE (NEGATIVE); URINE CLARITY CLOUDY (Clear); URINE COLOR YELLOW (YELLOW); URINE GLUCOSE (UA) >=500 mg/dL (Normal); URINE LEUKOCYTE ESTERASE NEG Leu/uL (Negative); URINE PROTEIN 100 mg/dL (NEGATIVE); URINE UROBILINOGEN 0.2-1.0 mg/dL (0.2-1.0)
[2018-07-12 20:55] LABS: BARBITURATES, UR NEGATIVE (NEGATIVE); BENZODIAZEPINES, UR NEGATIVE (NEGATIVE); OPIATES, UR NEGATIVE (NEGATIVE); PHENCYCLIDINE, UR NEGATIVE (NEGATIVE)
[2018-07-12] MEDS ORDERED: Magnesium Hydroxide Susp 30 ml UD PO PRN (23:44)
[2018-07-12] MEDS ORDERED: Alum-Mag Hydrox-Simethicone Susp (30 mL) PO PRN (23:44)
[2018-07-12] MEDS ORDERED: Bismuth Subsalicylate 262 mg/15 ml Sus (240 ml) PO PRN (23:44)
[2018-07-12] MEDS ORDERED: DiphenhydrAMINE 50 mg/ml Inj IM PRN (23:52)
--- NOTE | 2018-07-13 | PCM.BM ---
<Sonal Nathan - Last Filed: 07/12/18 23:56> Treatment Plan Problems - Problems identified on initial assessmt Hopelessness/Helplessness Date Initiated: 07/12/18 Time Initiated: 23:57 Assessment reference: NA Status: Active Feelings of Worthlessness Date Initiated: 07/12/18 Time Initiated: 23:58 Assessment reference: NA Status: Active Self Care Deficit Date Initiated: 07/12/18 Time Initiated: 23:58 Assessment reference: NA Status: Active Treatment assets and liabiliti Patient Assests: adapts well, cooperative, negotiates basic needs Patient Liabilities: live alone, financial problems, poor support system, other (ETOH ABUSE) - Milieu Protocol Maintain good personal hygiene: daily Encourage regular showers, daily Remind patient to perform daily oral care, daily Assist patient to perform ADL's Conduct patient checks and document Observation sheet: Q15 minutes Maintain personal safety: every shift Educate patient to report safety concerns to staff, every shift Monitor environment for contraband/sharps Medication safety: Monitor for expected outcome, potential side effects: every shift, Assess barriers to learning: every shift, Assess readiness for medication education: every shift <Goldie Hill - Last Filed: 07/13/18 09:56> - Diagnosis (1) Alcohol use disorder Status: Acute Interventions: Medication management, Individual and group therapy, Psychoeducation 07/13/18 09:56 (2) Major depressive disorder Status: Acute Interventions: Medication management, Individual and group therapy, Psychoeducation 07/13/18 09:57 <aJycee Hernandes M - Last Filed: 07/15/18 13:49> Family Contact Family involvement: Famliy/SO not involved - Goals for Treatment Patient goals for treatment: Pt to be encouraged to attend activity and clinical groups 3-5x per week to identify at least 2 contributing factors to depression and suicide attempt. Psycho-education to be provided to patient/ family regarding benefits of medications and treatment adherence. Pt to be encouraged to participate in group milieu to develop effective coping skills to reduce depression and free of suicide ideation. Coordinate discharge resource needs by providing referral for psychiatric treatment follow up in the community. Discharge/Continuing Care - Education Needs Education Needs: Patient Medication, Patient Diagnosis/Disease Process, Patient Coping Skills, Patient Placement options, Patient Community resources, Patient Personal Hygiene/Grooming, Patient Aftercare Safety Plan - Discharge Discharge Criteria: Tolerates medication w/o severe side effects, Free of Suicidal thoughts, Normal sleep pattern, Ability to care for self, Reduction of target symptoms Discharge to:: Senior Care, Residential - Additional Comments 07/15/18 13:41 Pt seen and discussed in team meeting. Reason for hospitalization reviewed and discussed. Pt talked about his homelessness and reported that if he is discharged back to the longterm in [place] "I'm going to go right for that light rail." Pt informed that [facility] have housing resources and if there is no availability at a boarding home that he will be discharged back to a longterm. Pt reported that he is from [facility] and would like to return to [facility] post discharge. Child Support Agent informed pt that he will be referred to boarding homes and again if no availability pt will be referred to local Shelters in [facility] or near [facility]. Pt verbalized agreement. Pt 's social and medical issues reviewed. Pt reported having no collateral contact. Pt's medications reviewed. Tx plan reviewed and discussed. Pt verbalized agreement. SW to continue to follow case. - Treatment Team Participation Discussed with Family/SO: No Was Patient/Family/SO present at Treatment Team Meeting: Yes
--- NOTE | 2018-07-13 06:22 | CARD ---
APPROVED REPORT Date of service: 07/12/2018 EKG Measurement Heart [id number] <Conclusion> Normal sinus rhythm Prolonged QT Abnormal ECG
[2018-07-13 07:43] LABS: IRON 226 ug/dL (49-181)
[2018-07-13 07:55] LABS: T4 6.93 ug/dl (5.5-11.0)
[2018-07-13 07:57] LABS: % IRON SATURATION 83 % (20-55); TOTAL IRON BINDING CAPACITY 273 ug/dL (250-450)
[2018-07-13] MEDS: Multivitamin With Minerals Tab PO SCH (09:00)
--- NOTE | 2018-07-13 09:59 | PCM.PSYCH ---
Initial Psychiatric Evaluation - Initial Psychiatric Evaluation Type of Admission: Voluntary Legal Status: Capacity Chief Complaint (in patient's own words): "I wanted to kill myself." Patient's Reaction to Hospitalization: HPI: 62 yo male w/ h/o alcohol use disorder and depression, presents w/ worsening depression and suicidal ideation to jump in from of the light rail in the context of alcohol relapse (drinks 2 pints of vodka/day). He reports that yesterday he was experiencing auditory hallucinations and visual hallucinations , but denies current AH/VH. He continues to report having suicidal ideation. NO paranoia/crystal/HI. PMHx: DM, Chronic neuropathy, venous leg surgery 6 months ago (patient unclear which surgery he had) PPHx: H/o of psychiatric treatment at [facility] for 8 months, 4 yrs ago. Several past psychiatric hospitalizations for treatment of depression and alcohol use disorder. ALL: Gabapentin SHx: Homeless, , 3 adult children, +Alcohol Abuse (drink 2 pints vodka/ day), smokes 1/2 ppd, denies illicit drug use FHx: Sister committed suicide; son w/ anxiety disorder Current Medications: Active Medications Generic Name Dose Route Start Last Admin Trade Name Freq PRN Reason Stop Dose Admin Acetaminophen 650 mg 07/12/18 23:44 07/13/18 09:02 Tylenol 325mg Tab PO 650 mg Q4 PRN Administration Pain, moderate (4-7) Al Hydrox/Mg Hydrox/Simethicone 30 ml 07/12/18 23:44 Maalox Plus 30 Ml PO Q4 PRN Dyspepsia Bismuth Subsalicylate 524 mg 07/12/18 23:44 Pepto-Bismol PO Q4 PRN Diarrhea Diphenhydramine HCl 50 mg 07/12/18 23:52 Benadryl IM Q6 PRN Extrapyramidal S/S Unable PO Diphenhydramine HCl 50 mg 07/12/18 23:52 Benadryl PO Q6 PRN Extrapyramidal Symptoms Diphenhydramine HCl 50 mg 07/12/18 23:52 Benadryl PO HS PRN Sleep Folic Acid 1 mg 07/13/18 09:00 07/13/18 08:59 Folic Acid PO 1 mg DAILY JUN Administration Haloperidol 5 mg 07/12/18 23:52 Haldol PO Q4 PRN Agitation Haloperidol Lactate 5 mg 07/12/18 23:52 Haldol IM Q4 PRN Agitation, Unable to Take PO Lorazepam 1 mg 07/13/18 09:00 07/13/18 08:58 Ativan PO 1 mg TID JUN Administration Lorazepam 2 mg 07/12/18 23:52 Ativan IM Q4 PRN Anxiety/Agitation,Unable PO Lorazepam 2 mg 07/12/18 23:52 Ativan PO Q4 PRN Anxiety/Agitation Lorazepam 2 mg 07/13/18 09:53 Ativan PO 07/13/18 09:54 ONCE ONE Magnesium Hydroxide 30 ml 07/12/18 23:44 Milk Of Magnesia PO HS PRN Constipation Multivitamins/Minerals 1 tab 07/13/18 09:00 07/13/18 09:00 Therapeutic-M Tab PO 1 tab DAILY JUN Administration Thiamine HCl 100 mg 07/13/18 09:00 07/13/18 09:00 Vitamin B1 Tab PO 100 mg DAILY JUN Administration Past Psychiatric History - Past Psychiatric History Pertinent Medical Hx (Current Medical&Sleep Prob, Allergies): Allergies Allergy/AdvReac Type Severity Reaction Status Date / Time gabapentin Allergy RASH Verified 07/12/18 17:18 Nicotine 14 mg/24 hr [Nicoderm CQ] 1 patch TD DAILY 04/22/18 Pregabalin [Lyrica] 50 mg PO Q12 04/22/18 Sertraline [Zoloft] 25 mg PO DAILY 04/22/18 metFORMIN [glucOPHAGE] 500 mg PO BID 04/22/18 traZODone [Desyrel] 50 mg PO HS 04/22/18 Pregabalin [Lyrica] 50 mg PO BID #30 cap 05/30/18 metFORMIN [glucOPHAGE] 500 mg PO BID #30 tab 05/30/18 Azithromycin [Zithromax] 250 mg PO DAILY #6 tab 07/12/18 Azithromycin [Zithromax] 250 mg PO DAILY #6 tab 07/12/18 Tobramycin 0.3% [Tobramycin 5 Ml] 1 drop OP TID #1 bottle 07/12/18 Review of Systems - Psychiatric Psychiatric: As Per HPI, Abnormal Sleep Pattern, Anhedonia, Anxiety, Change in Appetite, Depression, Difficulty Concentrating, Hopelessness, Irritability, Mood Swings, Suicidal Ideation Mental Status Examination - Personal Presentation Personal Presentation: Looks older than stated age - Affect Affect: Constricted, Depressed - Motor Activity Motor Activity: Calm - Reliability in Providing Information Reliability in Providing Information: Fair - Speech Speech: Coherent - Mood Mood: Depressed, Anxious - Formal Thought Process Formal Thought Process: No Impairment - Hallucinations/Delusions Additional comments: Denies AH/VH/paranoia/delusions - Obsessions/Compulsions Obsessions: No Compulsions: No - Cognitive Functions Orientation: Person, Place, Situation, Time Sensorium: Alert Attention/Concentration: Attentive Estimate of Intelligence: Average Judgement: Intact, as evidence by: Insight regarding need for hospitalization Memory: Recent intact, as evidence by: Ability to recall events of the day - Risk Risk: Suicidal, Diminished functioning - Strength & Assets Inventory Strength & Assets Inventory: Cooperative - Limitations Limitations: Other (Homelessness, Poverty) DSM 5 DX - DSM 5 DSM 5 Diagnosis: Alcohol Use Disorder; Major Depressive Disorder vs Alcohol Induced Mood Disorder - Recommended/Plan of Treatment Treatment Recommendations and Plan of Treatment: Alcohol Use Disorder; Major Depressive Disorder vs Alcohol Induced Mood Disorder -Admit to psychiatric unit -Individual and group therapy -Start Lexapro 10 mg PO Daily -Ativan to prevent ETOH withdrawal; will taper gradually -Medicine consult -PT screening -Psychoeducation -Disposition planning Projected ELOS: 7-10 days Discharge Plan and Discharge Criteria: Discharge when patient is psychiatrically stable - Smoking Cessation Smoking Cessation Initiated: Yes
--- NOTE | 2018-07-13 11:34 | RAD ---
Date of service: 07/12/2018 HISTORY: clearance COMPARISON: 07/12/2018 at 1:54 a.m.. FINDINGS: LUNGS: The lungs are well inflated and clear. PLEURA: No significant pleural effusion identified, no pneumothorax apparent. CARDIOVASCULAR: Normal. OSSEOUS STRUCTURES: No significant abnormalities. VISUALIZED UPPER ABDOMEN: Normal. OTHER FINDINGS: None. IMPRESSION: No active pulmonary disease.
--- NOTE | 2018-07-13 16:54 | CP.PCM.CON ---
History of Present Illness - History of Present Illness History of Present Illness: 62 y/o male with PMH DM type II, diabetic neuropathy , depression , history ETOH abuse , history PAD admitted to psych unit for management of depression . Medicine consulted . History obtained from patient . He states that he has been having problems on and off with drinking with multiple relapses for many years . He quit drinking recently for 15 days and restarted drinking again 5 days ago, heavily more than 5 pint of vodka / day . [facility] and [place] due to [place] . He decided to come to hospital today stating that he is not feeling well, depressed , has suicidal thoughts and his auditory and visual hallucinations. He states that has been suffering with depression since he got 6 years ago ,has tried suicide before , has been hospitalized in psychiatric unit but currently is not on any treatment for his depression. He complains of neuropathic pain to his LE . 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, Left LE angio Family history: mother had heart condition , father had asbestosis Social history:homeless, 6 years ago, has 3 children ,ETOH abuse for many years 5 pint vodka/ day denies drug abuse, smoker PMD : none Code status ; full code status ROS ; 14 point review of system negative negative except above Review of Systems - Review of Systems All systems: reviewed and no additional remarkable complaints except Past Patient History - Infectious Disease Hx of Infectious Diseases: None - Tetanus Immunizations Tetanus Immunization: Unknown - Past Medical History & Family History Past Medical History?: Yes Past Family History: Reviewed and not pertinent - Past Social History Alcohol: > 2 Drinks/Day Drugs: Denies - CARDIAC Hx Cardiac Disorders: No Hx Hypertension: No - PULMONARY Hx Tuberculosis: No - NEUROLOGICAL HX Cerebrovascular Accident: No Hx Seizures: No - HEENT Hx HEENT Problems: No - RENAL Hx Chronic Kidney Disease: No - ENDOCRINE/METABOLIC Hx Endocrine Disorders: Yes - HEMATOLOGICAL/ONCOLOGICAL Hx Cancer: No Hx Human Immunodeficiency Virus (HIV): No - INTEGUMENTARY Hx Dermatological Problems: No - MUSCULOSKELETAL/RHEUMATOLOGICAL Hx Musculoskeletal Disorders: Yes Other/Comment: neuropathy both legs - GASTROINTESTINAL Hx Gastrointestinal Disorders: Yes Hx Pancreatitis: Yes - GENITOURINARY/GYNECOLOGICAL Hx Sexually Transmitted Disorders: No - PSYCHIATRIC Hx Psychophysiologic Disorder: Yes - SURGICAL HISTORY Hx Surgeries: Yes Other/Comment: L. femur sx, l. leg neuropathy sx - ANESTHESIA Hx Anesthesia: Yes Hx Anesthesia Reactions: No Meds Allergies/Adverse Reactions: Allergies Allergy/AdvReac Type Severity Reaction Status Date / Time gabapentin Allergy RASH Verified 07/12/18 17:18 - Medications Medications: Current Medications Acetaminophen (Tylenol 325mg Tab) 650 mg PO Q4 PRN PRN Reason: Pain, moderate (4-7) Last Admin: 07/13/18 09:02 Dose: 650 mg Al Hydrox/Mg Hydrox/Simethicone (Maalox Plus 30 Ml) 30 ml PO Q4 PRN PRN Reason: Dyspepsia Bismuth Subsalicylate (Pepto-Bismol) 524 mg PO Q4 PRN PRN Reason: Diarrhea Diphenhydramine HCl (Benadryl) 50 mg IM Q6 PRN PRN Reason: Extrapyramidal S/S Unable PO Diphenhydramine HCl (Benadryl) 50 mg PO Q6 PRN PRN Reason: Extrapyramidal Symptoms Diphenhydramine HCl (Benadryl) 50 mg PO HS PRN PRN Reason: Sleep Escitalopram Oxalate (Lexapro) 10 mg PO DAILY [facility] Last Admin: 07/13/18 12:46 Dose: 10 mg Folic Acid (Folic Acid) 1 mg PO DAILY [facility] Last Admin: 07/13/18 08:59 Dose: 1 mg Haloperidol (Haldol) 5 mg PO Q4 PRN PRN Reason: Agitation Haloperidol Lactate (Haldol) 5 mg IM Q4 PRN PRN Reason: Agitation, Unable to Take PO Lorazepam (Ativan) 1 mg PO TID [facility] Last Admin: 07/13/18 12:46 Dose: 1 mg Lorazepam (Ativan) 2 mg IM Q4 PRN PRN Reason: Anxiety/Agitation,Unable PO Lorazepam (Ativan) 2 mg PO Q4 PRN PRN Reason: Anxiety/Agitation Magnesium Hydroxide (Milk Of Magnesia) 30 ml PO HS PRN PRN Reason: Constipation Multivitamins/Minerals (Therapeutic-M Tab) 1 tab PO DAILY [facility] Last Admin: 07/13/18 09:00 Dose: 1 tab Nicotine (Nicoderm Cq) 1 patch TD DAILY [facility] Last Admin: 07/13/18 12:49 Dose: 1 patch Thiamine HCl (Vitamin B1 Tab) 100 mg PO DAILY [facility] Last Admin: 07/13/18 09:00 Dose: 100 mg Physical Exam - Constitutional Appears: Non-toxic, No Acute Distress - Head Exam Head Exam: ATRAUMATIC, NORMAL INSPECTION, NORMOCEPHALIC - Eye Exam Eye Exam: EOMI, Normal appearance, PERRL Pupil Exam: NORMAL ACCOMODATION - ENT Exam ENT Exam: Mucous Membranes Moist, Normal Exam - Neck Exam Neck exam: Positive for: Full Rom, Normal Inspection - Respiratory Exam Respiratory Exam: Clear to Auscultation Bilateral, NORMAL BREATHING PATTERN. absent: Rales, Rhonchi, Wheezes - Cardiovascular Exam Cardiovascular Exam: REGULAR RHYTHM, RRR, +S1, +S2. absent: JVD - GI/Abdominal Exam GI & Abdominal Exam: Normal Bowel Sounds, Soft. absent: Distended, Guarding, Rebound, Tenderness - Rectal Exam Rectal Exam: Deferred - Extremities Exam Extremities exam: Positive for: normal capillary refill, normal inspection, pedal pulses present. Negative for: calf tenderness, pedal edema - Back Exam Back exam: NORMAL INSPECTION - Neurological Exam Neurological exam: Alert, CN II-XII Intact, Oriented x3, Reflexes Normal - Psychiatric Exam Psychiatric exam: Depressed, Flat Affect - Skin Skin Exam: Dry, Intact, Normal Color, Warm Results - Vital Signs Recent Vital Signs: Last Vital Signs Temp 98.1 F 07/13/18 16:08 Pulse 86 07/13/18 16:08 Resp 18 07/13/18 16:08 BP 147/92 H 07/13/18 16:08 Pulse Ox 98 07/12/18 22:28 - Labs Result Diagrams: 07/12/18 18:39 07/12/18 18:39 Labs: Laboratory Results - last 24 hr 07/12/18 07/12/18 07/12/18 18:39 18:39 20:20 WBC 10.4 RBC 3.97 L Hgb 12.4 Hct 36.2 MCV 91.2 MCH 31.2 H MCHC 34.2 RDW 13.9 Plt Count 133 MPV 8.0 Neut % (Auto) 72.6 Lymph % (Auto) 11.7 L Cabell % (Auto) 15.2 H Eos % (Auto) 0.0 Baso % (Auto) 0.5 Neut # (Auto) 7.6 H Lymph # (Auto) 1.2 Cabell # (Auto) 1.6 H Eos # (Auto) 0.0 Baso # (Auto) 0.0 Sodium 135 Potassium 3.8 Chloride 96 L Carbon Dioxide 30 Anion Gap 13 BUN 9 Creatinine 0.7 L Est GFR ( Amer) > 60 Est GFR (Non-Af Amer) > 60 POC Glucose (mg/dL) Random Glucose 247 H Hemoglobin A1c Calcium 9.3 Iron TIBC % Saturation Ferritin Total Bilirubin 1.3 AST 147 H D ALT 43 Alkaline Phosphatase 93 Total Protein 7.2 Albumin 4.3 Globulin 2.9 Albumin/Globulin Ratio 1.5 Triglycerides Cholesterol LDL Cholesterol Direct HDL Cholesterol Vitamin B12 Free T4 Thyroxine (T4) TSH 3rd Generation Urine Color Urine Clarity Urine pH Ur Specific Hatch Urine Protein Urine Glucose (UA) Urine Ketones Urine Blood Urine Nitrate Urine Bilirubin Urine Urobilinogen Ur Leukocyte Esterase Urine RBC (Auto) Urine Microscopic WBC Ur Squamous Epith Cells Urine Bacteria Urine Sperm (Auto) Urine Opiates Screen Negative Urine Methadone Screen Negative Ur Barbiturates Screen Negative Ur Phencyclidine Scrn Negative Ur Amphetamines Screen Negative U Benzodiazepines Scrn Negative U Oth Cocaine Metabols Negative U Cannabinoids Screen Negative Alcohol, Quantitative < 10 07/12/18 07/13/18 07/13/18 20:20 06:10 06:10 WBC RBC Hgb Hct MCV MCH MCHC RDW Plt Count MPV Neut % (Auto) Lymph % (Auto) Cabell % (Auto) Eos % (Auto) Baso % (Auto) Neut # (Auto) Lymph # (Auto) Cabell # (Auto) Eos # (Auto) Baso # (Auto) Sodium Potassium Chloride Carbon Dioxide Anion Gap BUN Creatinine Est GFR ( Amer) Est GFR (Non-Af Amer) POC Glucose (mg/dL) Random Glucose Hemoglobin A1c Calcium Iron 226 H TIBC 273 % Saturation 83 H Ferritin 207.0 Total Bilirubin AST ALT Alkaline Phosphatase Total Protein Albumin Globulin Albumin/Globulin Ratio Triglycerides 87 Cholesterol 139 LDL Cholesterol Direct 45 HDL Cholesterol 75 H Vitamin B12 377 Free T4 Thyroxine (T4) 6.93 TSH 3rd Generation 1.09 Urine Color Yellow Urine Clarity Cloudy Urine pH 5.0 Ur Specific Hatch 1.023 Urine Protein 100 Urine Glucose (UA) >=500 Urine Ketones 20 Urine Blood Moderate Urine Nitrate Negative Urine Bilirubin Negative Urine Urobilinogen 0.2-1.0 Ur Leukocyte Esterase Neg Urine RBC (Auto) 15 H Urine Microscopic WBC 5 Ur Squamous Epith Cells < 1 Urine Bacteria Rare Urine Sperm (Auto) Mod H Urine Opiates Screen Urine Methadone Screen Ur Barbiturates Screen Ur Phencyclidine Scrn Ur Amphetamines Screen U Benzodiazepines Scrn U Oth Cocaine Metabols U Cannabinoids Screen Alcohol, Quantitative 07/13/18 07/13/18 07/13/18 06:10 06:10 15:59 WBC RBC Hgb Hct MCV MCH MCHC RDW Plt Count MPV Neut % (Auto) Lymph % (Auto) Cabell % (Auto) Eos % (Auto) Baso % (Auto) Neut # (Auto) Lymph # (Auto) Cabell # (Auto) Eos # (Auto) Baso # (Auto) Sodium Potassium Chloride Carbon Dioxide Anion Gap BUN Creatinine Est GFR ( Amer) Est GFR (Non-Af Amer) POC Glucose (mg/dL) 152 H Random Glucose Hemoglobin A1c 7.0 H Calcium Iron TIBC % Saturation Ferritin Total Bilirubin AST ALT Alkaline Phosphatase Total Protein Albumin Globulin Albumin/Globulin Ratio Triglycerides Cholesterol LDL Cholesterol Direct HDL Cholesterol Vitamin B12 Free T4 1.23 Thyroxine (T4) TSH 3rd Generation Urine Color Urine Clarity Urine pH Ur Specific Hatch Urine Protein Urine Glucose (UA) Urine Ketones Urine Blood Urine Nitrate Urine Bilirubin Urine Urobilinogen Ur Leukocyte Esterase Urine RBC (Auto) Urine Microscopic WBC Ur Squamous Epith Cells Urine Bacteria Urine Sperm (Auto) Urine Opiates Screen Urine Methadone Screen Ur Barbiturates Screen Ur Phencyclidine Scrn Ur Amphetamines Screen U Benzodiazepines Scrn U Oth Cocaine Metabols U Cannabinoids Screen Alcohol, Quantitative Assessment & Plan - Assessment and Plan (Free Text) Assessment: 62 y/o male with PMH DM type II, diabetic neuropathy , depression , history ETOH abuse , history PAD admitted to psych unit for management of depression . Medicine consulted . History obtained from patient . He states that he has been having problems on and off with drinking with multiple relapses for many years . He quit drinking recently for 15 days and restarted drinking again 5 days ago, heavily more than 5 pint of vodka / day . [facility] and [facility] [place] . He decided to come to hospital today stating that he is not feeling well, depressed , has suicidal thoughts and his auditory and visual hallucinations. He states that has been suffering with depression since he got 6 years ago ,has tried suicide before , has been hospitalized in psychiatric unit but currently is not on any treatment for his depression. He complains of neuropathic pain to his LE . Denies any SOB, chest pain , palpitations, PND , orthopnea, urinary symptoms or changes in bowel movements 1. ETOH abuse and alcoholism Ativan PRN Withdrawal precautions Thiamine and Folic acid supplements counselled patient on ETOH abuse 2. Depression / suicidal thoughts management as per sych 3.DM type II controlled Hgb A1c 7 Accucheck ,insulin coverage diabetic diet 4.Diabetic neuropathy start lyrica
[2018-07-13] MEDS ORDERED: Dextrose 50% SYRINGE Inj (50 ml) IV PRN (17:17)
[2018-07-13] MEDS ORDERED: Glucagon Recombinant 1 mg Inj IM PRN (17:17)
[2018-07-13] MEDS: Insulin Lispro (humaLOG) 100 Units/ml Inj SC SCH (21:13)
[2018-07-13 22:47] LABS: FOLATE 10.2 ng/mL
[2018-07-14] MEDS: Insulin Lispro (humaLOG) 100 Units/ml Inj SC SCH ×4 (07:30→21:11)
--- NOTE | 2018-07-14 08:28 | PCM.PYCHPN ---
Psychiatric Progress Note - Psychiatric Progress Note Patient seen today, length of contact: Pt evaluated, case discussed w/ team, chart reviewed Patient Chief Complaint: "I wanted to kill myself." Problems Identified/Issues Discussed: Patient continues to report feeling depressed. Patient continues to have passive wishes that he was , but denies active suicidal ideation/plan/ intent. He reports that sometimes he sees "writing on the wall" and "things floating" but denies current AH/VH. He reports that he continues to feel tremulous at times and is currently being treated w/ Ativan for alcohol withdrawal. He reports poor sleep and chronic leg pain. Medication Change: No Medical Record Reviewed: Yes Consults ordered or reviewed: Medicine consult Mental Status Examination - Cognitive Function Orientation: Person, Place, Situation, Time Memory: Intact Attention: WNL Concentration: WNL Association: WNL Fund of Knowledge: [facility] Decription of patient's judgement and insights: Improving I/J - Mood Mood: Depressed, Anxious - Affect Affect: Constricted, Depressed - Formal Thought Process Formal Thought Process: No Impairment Psychotic Thoughts and Behaviors: Denies acute AH/VH - Suicidal Ideation Suicidal Ideation: Yes Plan: Passive SI; no active SI/plan/intent - Homicidal Ideation Homicidal Ideation: No Goal/Treatment Plan - Goal/Treatment Plan Need for Continued Stay: Remain at risks for inpatient hospitalization, Severe depression anxiety, Discharge may exacerbated symptoms Progress Toward Problem(s) and Goals/Treatment Plan: Alcohol Use Disorder; Major Depressive Disorder vs Alcohol Induced Mood Disorder -Individual and group therapy -Continue Lexapro 10 mg PO Daily -Ativan to prevent ETOH withdrawal; will taper gradually -Medicine consult -PT screening -Psychoeducation -Disposition planning Estimated Date of D/C: 07/19/18
[2018-07-14] MEDS: Multivitamin With Minerals Tab PO SCH (09:12)
[2018-07-15] MEDS: Insulin Lispro (humaLOG) 100 Units/ml Inj SC SCH ×4 (08:37→21:05)
[2018-07-15] MEDS: Multivitamin With Minerals Tab PO SCH (08:38)
--- NOTE | 2018-07-15 10:05 | PCM.PYCHPN ---
Psychiatric Progress Note - Psychiatric Progress Note Patient seen today, length of contact: Pt evaluated, case discussed w/ team, chart reviewed Patient Chief Complaint: "I wanted to kill myself." Problems Identified/Issues Discussed: Patient continues to report feeling depressed and anxious. He denies acute AH/ VH/SI/HI. We discussed continued tapering of Ativan. No current signs/ symptoms of ETOH withdrawal. He reports poor sleep and chronic leg pain. Medication Change: Yes (Taper Ativan) Medical Record Reviewed: Yes Consults ordered or reviewed: Medicine consult Mental Status Examination - Cognitive Function Orientation: Person, Place, Situation, Time Memory: Intact Attention: WNL Concentration: WNL Association: WNL Fund of Knowledge: [facility] Decription of patient's judgement and insights: Improving I/J - Mood Mood: Depressed, Anxious - Affect Affect: Constricted, Depressed - Formal Thought Process Formal Thought Process: No Impairment Psychotic Thoughts and Behaviors: Denies acute AH/VH - Suicidal Ideation Suicidal Ideation: No - Homicidal Ideation Homicidal Ideation: No Goal/Treatment Plan - Goal/Treatment Plan Need for Continued Stay: Remain at risks for inpatient hospitalization, Severe depression anxiety, Discharge may exacerbated symptoms Progress Toward Problem(s) and Goals/Treatment Plan: Alcohol Use Disorder; Major Depressive Disorder vs Alcohol Induced Mood Disorder -Individual and group therapy -Continue Lexapro 10 mg PO Daily -Ativan to prevent ETOH withdrawal; will taper gradually -Medicine consult -PT screening -Psychoeducation -Disposition planning Estimated Date of D/C: 07/19/18
[2018-07-16] MEDS: Insulin Lispro (humaLOG) 100 Units/ml Inj SC SCH ×3 (09:11→17:44)
[2018-07-16] MEDS: Multivitamin With Minerals Tab PO SCH (09:11)
--- NOTE | 2018-07-16 16:35 | PCM.PYCHPN ---
Psychiatric Progress Note - Psychiatric Progress Note Patient seen today, length of contact: Pt evaluated, case discussed w/ team, chart reviewed Patient Chief Complaint: reports was feeling depressed has history of etoh, pt is seen in social area, adherent with treatment. chronic leg pain pt seen by hospitalist Problems Identified/Issues Discussed: alteration in mood potential w/d with etoh Medical Problems: per chart Diagnostic Results: per psychiatry per medicine per nursing per social work per recreational therapy Medication Change: Yes (decrease lorazepam to 0.5mg po bid) Medical Record Reviewed: Yes Consults ordered or reviewed: pt seen by hospitalist Mental Status Examination - Cognitive Function Orientation: Person, Place, Situation, Time Memory: Intact Attention: WNL Concentration: WNL Association: WNL Fund of Knowledge: WNL - Mood Mood: Depressed, Anxious - Affect Affect: Constricted, Depressed - Formal Thought Process Formal Thought Process: No Impairment - Suicidal Ideation Suicidal Ideation: No - Homicidal Ideation Homicidal Ideation: No Goal/Treatment Plan - Goal/Treatment Plan Need for Continued Stay: Remain at risks for inpatient hospitalization, Severe depression anxiety, Discharge may exacerbated symptoms Progress Toward Problem(s) and Goals/Treatment Plan: inpt milieu adjust meds per status down taper lorazepam 0.5mg po bid pt seen by hospitalist discharge planning in progress Estimated Date of D/C: 07/19/18 - Smoking Cessation Smoking Cessation Initiated: No Reason for not providing: pt defers
[2018-07-17] MEDS: Insulin Lispro (humaLOG) 100 Units/ml Inj SC SCH ×4 (09:59→21:41)
[2018-07-17] MEDS: Multivitamin With Minerals Tab PO SCH (10:02)
--- NOTE | 2018-07-17 12:59 | PCM.PYCHPN ---
Psychiatric Progress Note - Psychiatric Progress Note Patient seen today, length of contact: Pt evaluated, case discussed w/ team, chart reviewed Patient Chief Complaint: reports was feeling depressed has history of etoh, pt is seen in social area, adherent with treatment. chronic leg pain pt seen by hospitalist Problems Identified/Issues Discussed: alteration in mood potential w/d with etoh Medical Problems: per chart Diagnostic Results: per psychiatry per medicine per nursing per social work per recreational therapy DSM 5 Symptoms Update: improving mood, improving sleep no complaints of etoh withdrawal Medication Change: Yes (decrease lorazepam to 0.25mg po bid) Medical Record Reviewed: Yes Consults ordered or reviewed: pt seen by hospitalist Mental Status Examination - Cognitive Function Orientation: Person, Place, Situation, Time Memory: Intact Attention: WNL Concentration: WNL Association: WNL Fund of Knowledge: WNL - Mood Mood: Depressed, Anxious - Affect Affect: Constricted, Depressed - Formal Thought Process Formal Thought Process: No Impairment - Suicidal Ideation Suicidal Ideation: No - Homicidal Ideation Homicidal Ideation: No Goal/Treatment Plan - Goal/Treatment Plan Need for Continued Stay: Remain at risks for inpatient hospitalization, Severe depression anxiety, Discharge may exacerbated symptoms Progress Toward Problem(s) and Goals/Treatment Plan: inpt milieu adjust meds per status down taper lorazepam 0.25mg po bid pt seen by hospitalist discharge planning in progress Estimated Date of D/C: 07/19/18 - Smoking Cessation Smoking Cessation Initiated: No Reason for not providing: pt defers
[2018-07-18] MEDS: Multivitamin With Minerals Tab PO SCH (08:33)
[2018-07-18] MEDS: Insulin Lispro (humaLOG) 100 Units/ml Inj SC SCH ×4 (08:34→21:30)
--- NOTE | 2018-07-18 08:41 | PCM.PYCHPN ---
Psychiatric Progress Note - Psychiatric Progress Note Patient seen today, length of contact: Pt evaluated, case discussed w/ team, chart reviewed Patient Chief Complaint: "I'm getting better." Problems Identified/Issues Discussed: Patient reports that his mood is improving. He denies acute AH/VH/SI/HI. He reports chronic leg pain. No current signs/symptoms of ETOH withdrawal. Medication Change: Yes (Stop Ativan) Medical Record Reviewed: Yes Consults ordered or reviewed: Medicine consult Mental Status Examination - Cognitive Function Orientation: Person, Place, Situation, Time Memory: Intact Attention: WNL Concentration: WNL Association: [facility] Fund of Knowledge: [facility] Decription of patient's judgement and insights: Fair I/J - Mood Mood: Anxious - Affect Affect: Constricted - Speech Speech: Appropriate - Formal Thought Process Formal Thought Process: No Impairment Psychotic Thoughts and Behaviors: No AH/VH/paranoia/delusions - Suicidal Ideation Suicidal Ideation: No - Homicidal Ideation Homicidal Ideation: No Goal/Treatment Plan - Goal/Treatment Plan Need for Continued Stay: Discharge may exacerbated symptoms Progress Toward Problem(s) and Goals/Treatment Plan: Alcohol Use Disorder; Major Depressive Disorder vs Alcohol Induced Mood Disorder -Individual and group therapy -Continue Lexapro 10 mg PO Daily -Stop Ativan -Medicine consult -Psychoeducation -Disposition planning- likely discharge tomorrow if patient continues to improve clinically Estimated Date of D/C: 07/19/18
[2018-07-19 05:36] VITALS: BP 95/69; PULSE 78; RESP 19; TEMP 98.1
--- NOTE | 2018-07-19 08:20 | PCM.PYCHDC ---
Mental Status Examination - Mental Status Examination Orientation: Person, Place, Situation, Time Memory: Intact Mood: Neutral Affect: Broad Speech: Appropriate Attention: WNL Concentration: WNL Association: WNL Fund of Knowledge: WNL Formal Thought Process: No Impairment Description of patient's judgement and insight: Fair I/J Psychotic Thoughts and Behaviors: No AH/VH/paranoia/delusions Suicidal Ideation: No Current Homicidal Ideation?: No Discharge Summary - Discharge Note Reason for Hospitalization: HPI: 62 yo male w/ h/o alcohol use disorder and depression, presents w/ worsening depression and suicidal ideation to jump in from of the light rail in the context of alcohol relapse (drinks 2 pints of vodka/day). He reports that yesterday he was experiencing auditory hallucinations and visual hallucinations , but denies current AH/VH. He continues to report having suicidal ideation. NO paranoia/crystal/HI. PMHx: DM, Chronic neuropathy, venous leg surgery 6 months ago (patient unclear which surgery he had) PPHx: H/o of psychiatric treatment at [facility] for 8 months, 4 yrs ago. Several past psychiatric hospitalizations for treatment of depression and alcohol use disorder. ALL: Gabapentin SHx: Homeless, , 3 adult children, +Alcohol Abuse (drink 2 pints vodka/ day), smokes 1/2 ppd, denies illicit drug use FHx: Sister committed suicide; son w/ anxiety disorder Laboratory Data: Abnormal Lab Results 07/18/18 07/18/18 07/18/18 11:47 15:22 20:02 POC Glucose (mg/dL) 134 H 147 H 158 H 07/19/18 05:51 POC Glucose (mg/dL) 160 H Consultations:: List each consultation separately and include: 1. Reason for request. 2. Findings. 3. Follow-up Consultations: Medicine consult Summary of Hospital Course include:: 1. Description of specific treatment plan utilized for patients during their course of treatmen. 2. Summarize the time- course for resolution of acute symptoms and/or regressed behaviors. 3. Describe issues identified and worked on during hospitalization. 4. Describe medication utilized. 5. Describe medical problems identified and treated. 6. Reassessment of suicide risk Summary of Hospital Course: Patient was admitted to the psychiatry unit. Individual and group therapy were provided. Patient was stabilized on Lexapro 10 mg PO Daily and treated w/ Ativan to prevent alcohol withdrawal. Patient reports that his mood has improved. He denies acute depression/anxiety/AH/VH/SI/HI/paranoia/delusions. He is psychiatrically stable for discharge at this time. Psychoeducation provided on the dangers of substance and ETOH abuse. - Diagnosis (1) Major depressive disorder Current Visit: Yes Status: Chronic (2) Alcohol use disorder Current Visit: Yes Status: Chronic - Final Diagnosis (DSM 5) Condition upon Discharge: STABLE DSM 5: Major Depressive Disorder; Alcohol Use Disorder Disposition: HOME/ ROUTINE Follow-up Treatment Plan: Major Depressive Disorder; Alcohol Use Disorder -Continue Lexapro 10 mg PO Daily -Psychoeducation provided on the dangers of alcohol abuse -Nicotine patch provided during hospitalization; patient declined outpatient prescription for the patch Prescriptions/Medication Reconciliation: Escitalopram [Lexapro] 10 mg PO DAILY #30 tab - Smoking Cessation Smoking Cessation Medication prescribed: Yes - Antipsychotic Medications Pt discharged on 2 or more routine antipsychotic medications: No
[2018-07-19] MEDS: Insulin Lispro (humaLOG) 100 Units/ml Inj SC SCH ×2 (09:09→09:12)
[2018-07-19] MEDS: Multivitamin With Minerals Tab PO SCH (09:10)
== END 2018-07-19 09:58 | disposition home or self-care (01) | DRG 881 ==
LOC: H.ER 16:26 → H.ERHOLD 21:08 → H.STEP 23:27
PROVIDERS: ADMIT Psychiatry & Neurology Psychiatry; ATTEND Psychiatry & Neurology Psychiatry
PROC: GZ51ZZZ Individual Psychotherapy, Behavioral (ICD-10-PCS; principal; 2018-07-12)
DX: F32.9 Major depressive disorder, single episode, unspecified (principal); R45.851 Suicidal ideations; F10.239 Alcohol dependence with withdrawal, unspecified; G89.29 Other chronic pain; Z59.0 Homelessness; Z79.899 Other long term (current) drug therapy; Z79.84 Long term (current) use of oral hypoglycemic drugs; M79.606 Pain in leg, unspecified; E11.41 Type 2 diabetes mellitus with diabetic mononeuropathy; F17.200 Nicotine dependence, unspecified, uncomplicated

== ENCOUNTER 2018-09-28 21:56 | Emergency (ER) | payer MEDICARE, OTHER ==
[2018-09-28 21:56] VITALS: BMI 24.4
[2018-09-28 22:04] VITALS: RESP 18
--- NOTE | 2018-09-28 22:19 | ED PDOC ---
HPI: Psych/Substance Abuse Time Seen by Provider: 09/28/18 22:07 Chief Complaint (Nursing): Alcohol Ingestion Chief Complaint (Provider): Alcohol Ingestion History Per: Patient History/Exam Limitations: no limitations Onset/Duration Of Symptoms: Hrs Current Symptoms Are (Timing): Still Present Additional Complaint(s): 62 y/o homeless male presents to the ED for alcohol intoxication. Patient is known to Provider and ER staff for frequent visits and bed malingering behavior. Patient offers no medical complaints at this time. However, according to triage notes, patient was complaining of leg pain. PMD: none Past Medical History Reviewed: Historical Data, Nursing Documentation, Vital Signs Vital Signs: Last Vital Signs Temp 98 F 09/28/18 22:02 Pulse 83 09/28/18 22:02 Resp 18 09/28/18 22:02 BP 148/81 09/28/18 22:02 Pulse Ox 96 09/28/18 22:02 - Medical History PMH: Anxiety, Depression, Pancreatitis Denies: Diabetes, Hepatitis, HIV, HTN, Chronic Kidney Disease, Seizures, Sexually Transmitted Disease - Surgical History Surgical History: No Surg Hx - Family History Family History: States: Unknown Family Hx - Social History Alcohol: > 2 Drinks/Day - Immunization History Hx Tetanus Toxoid Vaccination: Yes Hx Influenza Vaccination: No Hx Pneumococcal Vaccination: No - Home Medications Home Medications: Ambulatory Orders Medication Instructions Recorded No Known Home Med 07/21/18 - Allergies Allergies/Adverse Reactions: Allergies Allergy/AdvReac Type Severity Reaction Status Date / Time gabapentin Allergy RASH Verified 07/21/18 14:35 Review of Systems ROS Statement: Except As Marked, All Systems Reviewed And Found Negative Psych: Positive for: Other (EtOH intoxication) Physical Exam - Reviewed Nursing Documentation Reviewed: Yes Vital Signs Reviewed: Yes - Physical Exam Appears: Positive for: No Acute Distress Head Exam: Positive for: ATRAUMATIC, NORMOCEPHALIC Skin: Positive for: Normal Color, Warm, Dry Eye Exam: Positive for: Normal appearance, EOMI, PERRL Neck: Positive for: Normal, Painless ROM Cardiovascular/Chest: Positive for: Regular Rate, Rhythm. Negative for: Murmur Respiratory: Positive for: Normal Breath Sounds. Negative for: Respiratory Distress Gastrointestinal/Abdominal: Positive for: Normal Exam, Soft. Negative for: Tenderness Back: Positive for: Normal Inspection. Negative for: L CVA Tenderness, R CVA Tenderness, Vertebral Tenderness Extremity: Positive for: Normal ROM. Negative for: Pedal Edema, Deformity Neurologic/Psych: Positive for: Alert, Oriented, Gait (unsteady gait), Other (slurred speech). Negative for: Motor/Sensory Deficits - ECG O2 Sat by Pulse Oximetry: 96 (RA) Pulse Ox Interpretation: Normal Medical Decision Making Medical Decision Making: Time: 2211 Impression: 62 y/o male with alcohol intoxication Plan: -- Alcohol Serum -- Urine Drug Screen -- Glucose, POC -- Accucheck 0620 Patient clinically sober at this time and stable for discharge with diagnosis of alcohol intoxication. Scribe Attestation: Documented by Natasha Mcgill, acting as a scribe for Nakul Daily MD. Provider Scribe Attestation: All medical record entries made by the Scribe were at my direction and personally dictated by me. I have reviewed the chart and agree that the record accurately reflects my personal performance of the history, physical exam, medical decision making, and the department course for this patient. I have also personally directed, reviewed, and agree with the discharge instructions and disposition. Disposition - Clinical Impression Clinical Impression: Alcohol abuse with intoxication - Patient ED Disposition Is Patient to be Admitted: No - Disposition Disposition: Routine/Home Disposition Time: 06:21 Condition: FAIR Instructions: Alcohol Abuse and Alcoholism (DC) Forms: [employer] (Mohawk)
[2018-09-29 05:42] LABS: BARBITURATES, UR NEGATIVE (NEGATIVE); BENZODIAZEPINES, UR NEGATIVE (NEGATIVE); OPIATES, UR NEGATIVE (NEGATIVE); PHENCYCLIDINE, UR NEGATIVE (NEGATIVE)
[2018-09-29 07:10] VITALS: BP 123/86; PULSE 99; TEMP 98.1; O2SAT 100
== END 2018-09-29 06:55 | disposition home or self-care (01) ==
LOC: H.ER 21:56
DX: F10.129 Alcohol abuse with intoxication, unspecified (principal); Z59.0 Homelessness; F32.9 Major depressive disorder, single episode, unspecified

== ENCOUNTER 2018-09-29 07:35 | Emergency (ER) | payer MEDICARE, OTHER ==
[2018-09-29 07:35] VITALS: BMI 24.4
[2018-09-29] MEDS ORDERED: Sodium Chloride 0.9% 1,000 ML IV SCH (08:00)
--- NOTE | 2018-09-29 08:21 | ED PDOC ---
HPI: General Adult Additional Complaint(s): Pt seen and examined at bedside with attending. 62M presents 45 minutes after discharge with complaints of RIGHT foot pain that prevented him from walking further than the corner. He denies any trauma to the foot. <Svetlana Fields - Last Filed: 09/29/18 11:02> <Kiya Sun - Last Filed: 10/02/18 20:29> Time Seen by Provider: 09/29/18 08:00 Chief Complaint (Nursing): Lower Extremity Problem/Injury Supervising Attending Note - Supervising Attending Note The Documented history was done by the: Physician Imaging Engineer The documented physical exam was done by the: Physician Imaging Engineer The documented procedures were done by the: Physician Imaging Engineer - Attestation: I have personally seen and examined this patient.: Yes I have fully participated in the care of the patient.: Yes I have reviewed all pertinent clinical information, including history, physical exam and plan: Yes - Notes: Notes:: Pt initially appeared intoxicate but without neurologic deficit on arrival to the ED. PE unremarkable. Pt discharged without intervention. Agree with resident assessment and plan. <Kiya Sun - Last Filed: 10/02/18 20:29> Past Medical History Vital Signs: Last Vital Signs Temp 36.5 C 09/29/18 07:38 Pulse 107 H 09/29/18 07:38 Resp 16 09/29/18 07:38 BP 108/72 09/29/18 07:38 Pulse Ox 98 09/29/18 07:47 - Medical History PMH: Anxiety, Depression, Pancreatitis Denies: Diabetes, Hepatitis, HIV, HTN, Chronic Kidney Disease, Seizures, Sexually Transmitted Disease - Family History Family History: States: Unknown Family Hx - Immunization History Hx Tetanus Toxoid Vaccination: Yes Hx Influenza Vaccination: No Hx Pneumococcal Vaccination: No <Svetlana Fields - Last Filed: 09/29/18 11:02> Vital Signs: Last Vital Signs Temp 98.0 F 09/29/18 10:50 Pulse 97 H 09/29/18 10:50 Resp 18 09/29/18 10:50 BP 127/84 09/29/18 10:50 Pulse Ox 98 09/29/18 11:02 <Kiya Sun - Last Filed: 10/02/18 20:29> - Home Medications Home Medications: Ambulatory Orders Medication Instructions Recorded RX: No Known Home Med 07/21/18 - Allergies Allergies/Adverse Reactions: Allergies Allergy/AdvReac Type Severity Reaction Status Date / Time gabapentin Allergy RASH Verified 10/02/18 09:07 Review of Systems ROS Statement: Except As Marked, All Systems Reviewed And Found Negative Musculoskeletal: Positive for: Foot Pain (RIGHT) <Svetlana Fields - Last Filed: 09/29/18 11:02> Physical Exam - Reviewed Vital Signs Reviewed: Yes - Physical Exam Appears: Positive for: Non-toxic, No Acute Distress Head Exam: Positive for: ATRAUMATIC Skin: Positive for: Normal Color, Warm, Dry Eye Exam: Positive for: Normal appearance, EOMI. Negative for: Nystagmus ENT: Positive for: Normal ENT Inspection Neck: Positive for: Supple Cardiovascular/Chest: Positive for: Tachycardia. Negative for: Murmur Respiratory: Positive for: Normal Breath Sounds. Negative for: Crackles, Wheezing Gastrointestinal/Abdominal: Positive for: Normal Exam, Bowel Sounds, Soft. Negative for: Tenderness Extremity: Positive for: Tenderness (the entire foot), Capillary Refill (<3s), Other (RIGHT foot without evidence of trauma, non-erythematous, non-edematous, palpable pulses, no color changes, no ulcerations). Negative for: Pedal Edema, Calf Tenderness, Deformity, Swelling Neurologic/Psych: Positive for: Alert, Oriented <Svetlana Fields - Last Filed: 09/29/18 11:02> - Laboratory Results Result Diagrams: 09/29/18 08:17 - ECG O2 Sat by Pulse Oximetry: 98 <Svetlana Fields - Last Filed: 09/29/18 11:02> - Laboratory Results Result Diagrams: 09/29/18 08:17 <Kiya Sun - Last Filed: 10/02/18 20:29> Medical Decision Making Medical Decision Making: Discharged 45 minutes ago, RIGHT foot discomfort but ambulating without limp, no evidence of infection and neurovascular intact. Slightly tachycardic. CIWA-4 - Alcohol, BMP, Mg - 1L NS bolus - Tylenol - Reeval Patient reports vomiting after eating breakfast - Pepcid, Zofran IVP - Reeval Patient reports feeling much better and plans to follow up with Dr Rea <Svetlana Fields - Last Filed: 09/29/18 11:02> Disposition - Patient ED Disposition Is Patient to be Admitted: No - Disposition Disposition: Routine/Home Disposition Time: 11:01 <Svetlana Fields - Last Filed: 09/29/18 11:02> <Kiya Sun - Last Filed: 10/02/18 20:29> - Clinical Impression Clinical Impression: Arthritis of foot, right, Alcohol use - Disposition Referrals: Tico Betancourt MD [Staff Provider] - Condition: IMPROVED Additional Instructions: Return to the ER for worsening symptoms especially involving fevers, chills Follow up with primary care doctor Instructions: Osteoarthritis (DC), Arthritis and Exercise Forms: [employer] (Kiswahili)
[2018-09-29 08:35] LABS: BLOOD UREA NITROGEN 10 mg/dl (9-20); CALCIUM 9.5 mg/dL (8.4-10.2); GFR NON-AFRICAN AMERICAN > 60
[2018-09-29 10:51] VITALS: BP 127/84; PULSE 97; RESP 18; TEMP 98
[2018-09-29 11:01] VITALS: O2SAT 98
== END 2018-09-29 11:05 | disposition home or self-care (01) ==
LOC: H.ER 07:35
DX: M19.071 Primary osteoarthritis, right ankle and foot (principal); F10.10 Alcohol abuse, uncomplicated; F41.9 Anxiety disorder, unspecified
CPT/HCPCS: 80048; 80320; 96374; 96375; 99284; J2405; J7030

== ENCOUNTER 2018-09-29 19:54 | Emergency (ER) | payer MEDICARE, OTHER ==
[2018-09-29 19:54] VITALS: BMI 24.4
[2018-09-29 19:57] VITALS: PULSE 78
--- NOTE | 2018-09-29 21:36 | ED PDOC ---
HPI: Psych/Substance Abuse Time Seen by Provider: 09/29/18 20:35 Chief Complaint (Nursing): Alcohol Ingestion History Per: Patient Additional Complaint(s): Pt. states for the past 6 months he's had constant R leg pain which starts on the knee and radiates downward. States he was dx with having "neuropathy" to the leg. Denies trauma, chest pain, SOB, hemoptysis, fever, numbness, tingling. Admits that he does drink daily and drank alcohol today. Past Medical History Reviewed: Historical Data, Nursing Documentation, Vital Signs Vital Signs: Last Vital Signs Temp 97.1 F L 09/29/18 19:56 Pulse 78 09/29/18 19:56 Resp 16 09/29/18 19:56 BP 130/93 H 09/29/18 19:56 Pulse Ox 98 09/29/18 19:56 - Medical History PMH: Anxiety, Depression, Pancreatitis Denies: Diabetes, Hepatitis, HIV, HTN, Chronic Kidney Disease, Seizures, Sexually Transmitted Disease - Family History Family History: States: No Known Family Hx - Social History Current smoker - smoking cessation education provided: Yes (x30 years) - Immunization History Hx Tetanus Toxoid Vaccination: Yes Hx Influenza Vaccination: No Hx Pneumococcal Vaccination: No - Home Medications Home Medications: Ambulatory Orders Medication Instructions Recorded No Known Home Med 07/21/18 - Allergies Allergies/Adverse Reactions: Allergies Allergy/AdvReac Type Severity Reaction Status Date / Time gabapentin Allergy RASH Verified 09/29/18 19:55 Review of Systems ROS Statement: Except As Marked, All Systems Reviewed And Found Negative Musculoskeletal: Positive for: Leg Pain Physical Exam - Physical Exam Appears: Positive for: Well, Non-toxic, No Acute Distress Skin: Positive for: Normal Color, Warm. Negative for: Rash Eye Exam: Positive for: Normal appearance Cardiovascular/Chest: Positive for: Regular Rate, Rhythm Respiratory: Positive for: CNT, Normal Breath Sounds Pulses-Dorsalis Pedis (L): 2+ Pulses-Dorsalis Pedis (R): 2+ Extremity: Positive for: Normal ROM (FROM actively of b/l lower extremities), Capillary Refill (< 2 seconds to R foot), Other (b/l lower extremities are warm without tenderness, swelling, pallor, erythema, lesions, break in skin integrity, ecchymosis). Negative for: Calf Tenderness (b/l) Neurologic/Psych: Positive for: Alert, Oriented (x3), Gait (steady, unassisted), Other (b/l lower extremities with 5/5 strength). Negative for: Aphasia, Facial Droop - ECG O2 Sat by Pulse Oximetry: 98 - Progress ED Course And Treament: Duplex RLE vein: negative. On re-evaluation, gait steady and unassisted. Disposition - Clinical Impression Clinical Impression: Chronic leg pain - Patient ED Disposition Is Patient to be Admitted: No - Disposition Referrals: [facility] [Outside] [facility] [Outside] Disposition: Routine/Home Disposition Time: 23:50 Condition: STABLE Additional Instructions: RETURN TO ED IMMEDIATELY IF SYMPTOMS WORSEN HA CASTRO, thank you for letting us take care of you today. Your provider was Munira De Paz MD and you were treated for EOTH. The emergency medical care you received today was directed at your acute symptoms. If you were prescribed any medication, please fill it and take as directed. It may take several days for your symptoms to resolve. Return to the Emergency Department if your symptoms worsen, do not improve, or if you have any other problems. Please contact your doctor or call one of the physicians/clinics you have been referred to that are listed on the Patient Visit Information form that is included in your discharge packet. Bring any paperwork you were given at discharge with you along with any medications you are taking to your follow up visit. Our treatment cannot replace ongoing medical care by a primary care provider outside of the emergency department. Thank you for allowing the [facility] team to be part of your care today. If you had an X-Ray or CT scan: A Radiologist will review the ED reading if any change in treatment is needed we will contact you. If you had a blood, urine, or wound culture: It will take several days for the results, if any change in treatment is needed we will contact you. If you had an STI test: It will take 48 hours for the results. Please call after 1 week if you have not heard back. Instructions: Chronic Pain, Quitting Smoking for Older Adults Forms: [employer] (Israeli)
[2018-09-30 00:14] VITALS: BP 130/88; RESP 18; TEMP 98; O2SAT 99
--- NOTE | 2018-09-30 13:21 | US ---
Date of service: 09/29/2018 PROCEDURE: Right lower extremity venous duplex Doppler. HISTORY: pain COMPARISON: None available. TECHNIQUE: Common femoral, superficial femoral, popliteal and posterior tibial veins were evaluated. Flow was assessed with color Doppler, compressibility, assessment of phasic flow and augmentation response. FINDINGS: COMMON FEMORAL VEIN: Unremarkable. SUPERFICIAL FEMORAL VEIN: Unremarkable. POPLITEAL VEIN: Unremarkable. POSTERIOR TIBIAL VEIN: Unremarkable. OTHER FINDINGS: None. IMPRESSION: No evidence of deep venous thrombosis in the right lower extremity. Concordant findings (preliminary report) provided by SHONNA NEUMANN.
== END 2018-09-30 00:07 | disposition home or self-care (01) ==
LOC: H.ER 19:54
DX: M79.606 Pain in leg, unspecified (principal); G89.29 Other chronic pain

== ENCOUNTER 2018-12-06 23:01 | Emergency (ER) | payer MEDICARE, SELFPAY ==
[2018-12-06 23:01] VITALS: BMI 24.4
--- NOTE | 2018-12-07 00:58 | ED PDOC ---
HPI: Psych/Substance Abuse Time Seen by Provider: 12/06/18 23:09 Chief Complaint (Nursing): Alcohol Ingestion Chief Complaint (Provider): Alcohol Ingestion ED Caveat: Intoxicated History/Exam Limitations: intoxication Modifying Factor(s): Alcohol Additional Complaint(s): 63 y/o male was brought to the ED by EMS [place] evaluation of alcohol intoxication. Patient admits to drinking alcohol tonight; denies any injuries. Patient is intoxicated and is unable to provide full history. Past Medical History Reviewed: Historical Data, Nursing Documentation, Vital Signs Vital Signs: Last Vital Signs Temp 98 F 12/06/18 23:04 Pulse 87 12/06/18 23:04 Resp 16 12/06/18 23:04 BP 117/76 12/06/18 23:04 Pulse Ox 100 12/06/18 23:04 - Medical History PMH: Anxiety, Depression, Pancreatitis Denies: Diabetes, Hepatitis, HIV, HTN, Chronic Kidney Disease, Seizures, Sexually Transmitted Disease - Family History Family History: States: Unknown Family Hx - Immunization History Hx Tetanus Toxoid Vaccination: Yes Hx Influenza Vaccination: No Hx Pneumococcal Vaccination: No - Home Medications Home Medications: Ambulatory Orders Medication Instructions Recorded Pantoprazole [Protonix EC Tab] 40 mg PO DAILY #30 ect 10/13/18 Sertraline [Zoloft] 100 mg PO DAILY #30 tab 10/13/18 metFORMIN [glucOPHAGE] 850 mg PO BID #60 tab 10/13/18 traZODone [Desyrel] 50 mg PO HS #30 tab 10/13/18 - Allergies Allergies/Adverse Reactions: Allergies Allergy/AdvReac Type Severity Reaction Status Date / Time gabapentin Allergy RASH Verified 10/02/18 09:07 Review of Systems Review Of Systems: ROS cannot be obtained secondary to pt's inabilty to answer questions. Physical Exam - Reviewed Nursing Documentation Reviewed: Yes Vital Signs Reviewed: Yes - Physical Exam Appears: Positive for: Well (intoxicated appearing) Head Exam: Positive for: ATRAUMATIC, NORMAL INSPECTION, NORMOCEPHALIC Skin: Positive for: Normal Color, Warm, DRY Eye Exam: Positive for: EOMI, Normal appearance, PERRL ENT: Positive for: Normal ENT Inspection Neck: Positive for: Normal, Painless ROM Cardiovascular/Chest: Positive for: Regular Rate, Rhythm. Negative for: Murmur Respiratory: Positive for: Normal Breath Sounds. Negative for: Respiratory Distress Gastrointestinal/Abdominal: Positive for: Normal Exam, Soft Back: Positive for: Normal Inspection Extremity: Positive for: Normal ROM Neurologic/Psych: Positive for: Alert, Oriented (x3), Mood/Affect (fall asleep early). Negative for: Motor/Sensory Deficits - ECG O2 Sat by Pulse Oximetry: 100 (RA) Pulse Ox Interpretation: Normal Medical Decision Making Medical Decision Making: Time: 23:48 A/P: 63 y/o male brought to the ED by EMS for alcohol intoxication without signs of trauma. * Glucose 0300 Patient sleeping comfortably 0530 Awake, alert, steady gait Clinically sober Stable for discharge Scribe Attestation: Documented by Jamie Bean acting as a scribe for Oskar Mitchell MD. Provider Scribe Attestation: All medical record entries made by the Scribe were at my direction and personally dictated by me. I have reviewed the chart and agree that the record accurately reflects my personal performance of the history, physical exam, medical decision making, and the department course for this patient. I have also personally directed, reviewed, and agree with the discharge instructions and disposition. Disposition - Clinical Impression Clinical Impression: Alcohol intoxication - Patient ED Disposition Is Patient to be Admitted: No - Disposition Referrals: Alcohol[facility] Anonymous [Outside] Disposition: Routine/Home Disposition Time: 05:21 Condition: STABLE Instructions: Alcohol Use - When Is Drinking a Problem?, Effects of Alcohol on Your Health Forms: [employer] ([place])
[2018-12-07 05:50] VITALS: BP 112/81; PULSE 82; RESP 18; TEMP 98.2; O2SAT 97
== END 2018-12-07 06:06 | disposition home or self-care (01) ==
LOC: H.ER 23:01
DX: F10.129 Alcohol abuse with intoxication, unspecified (principal); Z86.59 Personal history of other mental and behavioral disorders